=== PATIENT | male | born 1935 | race Caucasian/White ===

== ENCOUNTER 2017-06-24 08:41 | Inpatient (IN) | payer MEDICARE, BC ==
[2015-10-31 09:50] VITALS: Ht 162.6 cm; Wt 81.4 kg
[~2017-06-24] VITALS: Ht 162.6 cm; Wt 81.4 kg
[~2017-06-24 08:41] MED LIST: ACE500 PO; ASCO100T15 PO; ATOR10TA65 PO; ATR10 PO; BEN10 PO; BENA40TA2 PO; DOXA1TAB38 PO; GLUC-198 PO; INUL1TAB PO; L GA1CAP PO; LOR5/325 PO; MECL-111 PO; MECLAZINE; MULT-27 PO; NAPR-1043 PO; POLY17PO25 PO; TAMS0.4C25 PO; VIT-7 PO; VITAMINS PO
--- NOTE | 2017-06-24 08:56 | ER Report ---
History and Physical Time Seen By MD: 08:55 HPI/ROS CHIEF COMPLAINT: feels like bowels are blocked HISTORY OF PRESENT ILLNESS: This is an 82 year old male. He has a history of bowel obstruction and feels like the same thing is happening. Had diarrhea 2 days ago and no bowel movement since then. Had taken Pepto Bismol. Was passing gas yesterday, but no gas today. Abdomen is bloated. Severe nausea and had tried to vomit to help relieve this, but has not helped. Mild to moderate pain. REVIEW OF SYSTEMS: Constitutional: No fever or chills. Eyes: No vision changes. ENT: No sore throat. No congestion. Cardiovascular: No chest pain. Respiratory: No shortness of breath. Gastrointestinal: As above. Genitourinary: No dysuria. Musculoskeletal: No back pain. No extremity pain. Skin: No rashes. Neurological: No numbness. No headache. Allergies: Coded Allergies: Penicillins (Verified Allergy, Mild, 06/24/17) rofecoxib (Verified Allergy, Unknown, 06/24/17) Uncoded Allergies: MOLDS (Allergy, Mild, POS. ALLERGY TEST, 07/15/08) TREES (Allergy, Mild, ALLERGY TEST, 07/15/08) Home Meds Active Scripts Tamsulosin Hcl (FLOMAX) 0.4 Mg Cap.er.24h, 1 CAP PO QDAY, #90 CAP 1 Refill Prov:YANIRA ALVARES MD 04/01/17 Atorvastatin Calcium (ATORVASTATIN CALCIUM) 10 Mg Tablet, 1 TAB PO QHS, #90 TAB 1 Refill Prov:YANIRA ALVARES MD 02/22/17 Reported Medications Polyethylene Glycol 3350 (MIRALAX) 17 Gm Powd.pack, 17 GM PO QDAY, PKT 02/01/17 Benazepril Hcl (LOTENSIN) 40 Mg Tablet, 40 MG PO QDAY, TAB 02/01/17 Naproxen Sodium (ALEVE) 220 Mg Tablet, 220 MG PO QDAY, TAB use it only prn but try not too and certainly not once a day. he says he hardly uses it at all 10/30/15 Glucosa Bower 2KCL/Chondroitin Bower (GLUCOSAMINE & CHONDROITIN CAP) 1 Each Capsule, 1 EACH PO, CAPSULE 01/15/14 Past Medical/Surgical History Hypertension, hyperlipidemia, arthritis, plantar fasciitis. Surgeries include appendectomy, hernia repair 20 years ago, back surgery for herniated disc, left and right shoulder surgery. On last admission he had a laparoscopy with lysis of adhesions for small bowel obstruction. Hx Smoking: Yes Smoking Status: Former Smoker Hx Alcohol Use: Yes Constitutional Vital Sign - Last 24 Hours 06/24/17 06/24/17 06/24/17 06/24/17 08:41 08:47 08:50 09:00 Temp 98.5 Pulse ??? 91 Resp 22 B/P (MAP) 187/80 187/80 (115) 164/149 (154) Pulse Ox 93 O2 Delivery Room Air 06/24/17 06/24/17 06/24/17 06/24/17 09:11 09:14 09:17 09:19 Pulse 82 78 B/P (MAP) 160/72 (101) Pulse Ox 94 90 O2 Flow Rate 2.0 06/24/17 06/24/17 06/24/17 06/24/17 09:37 10:00 10:19 10:30 Pulse 85 B/P (MAP) 149/74 (99) 148/67 (94) 153/71 (98) Pulse Ox 95 06/24/17 06/24/17 06/24/17 06/24/17 10:49 11:00 11:05 11:30 Pulse 88 87 B/P (MAP) 146/71 (96) 157/73 (101) Pulse Ox 97 96 06/24/17 06/24/17 06/24/17 06/24/17 11:56 12:05 12:35 12:40 Pulse 91 88 87 B/P (MAP) 168/73 (104) Pulse Ox 97 95 95 06/24/17 06/24/17 06/24/17 06/24/17 13:10 13:43 14:32 14:37 Pulse ??? 93 B/P (MAP) 131/85 (100) 145/66 (92) Pulse Ox 95 06/24/17 06/24/17 15:00 15:07 Pulse 94 B/P (MAP) 150/67 (94) Pulse Ox 85 Physical Exam General Appearance: The patient is alert. No acute distress. Eyes: Pupils are equal, round. No pallor, injection or icterus. ENT: Mucous membranes are dry. Otherwise normal oral mucosa. Posterior oropharynx is normal. Respiratory: Lungs are clear to auscultation. Cardiovascular: Regular rate and rhythm. No murmurs, gallops or rubs. Normal capillary refill. Gastrointestinal: Abdomen is soft, moderate discomfort with palpation. Distended. Bowel sounds quite with sudden gurgling rushes. No rebound or guarding. No masses or organomegaly. Neurological: Alert and oriented x3. No focal neurologic deficits Skin: Warm and dry. No rashes. DIFFERENTIAL DIAGNOSIS: After history and physical exam, differential diagnosis was considered for distended abdomen with some pain and nausea concerning for bowel obstruction. Medical Decision Making Data Points Result Diagram: 06/24/17 0853 06/24/17 0853 Laboratory Hematology Test 06/24/17 08:48 06/24/17 08:53 Urine Color Yellow Urine Clarity Clear Urine pH 5.0 pH (4.8-9.5) Urine Specific Antler 1.016 Urine Protein Negative mg/dL (NEGATIVE) Urine Glucose (UA) Negative mg/dL (NEGATIVE) Urine Ketones Negative mg/dL (NEGATIVE) Urine Blood Negative (NEGATIVE) Urine Nitrite Negative (NEGATIVE) Urine Bilirubin Negative (NEGATIVE) Urine Urobilinogen Negative mg/dL (0.2-1.9) Urine Leukocyte Esterase Negative (NEGATIVE) Urine RBC None /HPF (0-2/HPF) Urine WBC None /HPF (0-5/HPF) Urine Squamous Epithelial Cells None /LPF (</=FEW) Urine Bacteria Negative /HPF (NONE-FEW) Urine Mucus None /HPF (NONE-FEW) Red Blood Count 5.05 M/uL (4.00-5.60) Mean Corpuscular Volume 94.4 fL (80.0-96.0) Mean Corpuscular Hemoglobin 32.7 pg (26.0-33.0) Mean Corpuscular Hemoglobin Concent 34.7 g/dL (32.0-36.0) Red Cell Distribution Width 13.3 % (11.5-14.5) Mean Platelet Volume 9.3 fL (7.2-11.1) Neutrophils (%) (Auto) 80.0 % (39.4-72.5) Lymphocytes (%) (Auto) 12.2 % (17.6-49.6) Monocytes (%) (Auto) 6.9 % (4.1-12.4) Eosinophils (%) (Auto) 0.4 % (0.4-6.7) Basophils (%) (Auto) 0.5 % (0.3-1.4) Nucleated RBC Relative Count (auto) 0.1 /100WBC Neutrophils # (Auto) 9.5 K/uL (2.0-7.4) Lymphocytes # (Auto) 1.4 K/uL (1.3-3.6) Monocytes # (Auto) 0.8 K/uL (0.3-1.0) Eosinophils # (Auto) 0.0 K/uL (0.0-0.5) Basophils # (Auto) 0.1 K/uL (0.0-0.1) Nucleated RBC Absolute Count (auto) 0.02 K/uL Sodium Level 139 mmol/L (137-145) Potassium Level 3.8 mmol/L (3.5-5.0) Chloride Level 103 mmol/L (98-107) Carbon Dioxide Level 23 mmol/L (22-30) Blood Urea Nitrogen 12 mg/dl (9-21) Creatinine 1.10 mg/dl (0.66-1.25) Glomerular Filtration Rate Calc > 60.0 Random Glucose 121 mg/dl (75-110) Calcium Level 9.3 mg/dl (8.4-10.2) Total Bilirubin 1.1 mg/dl (0.2-1.3) Aspartate Amino Transf (AST/SGOT) 25 U/L (0-35) Alanine Aminotransferase (ALT/SGPT) 31 U/L (0-56) Alkaline Phosphatase 62 U/L (0-126) Total Protein 8.6 gm/dl (6.3-8.2) Albumin 4.4 g/dl (3.5-5.0) Amylase Level 126 U/L (0-110) Lipase 139 U/L (23-300) Chemistry Test 06/24/17 08:48 06/24/17 08:53 Urine Color Yellow Urine Clarity Clear Urine pH 5.0 pH (4.8-9.5) Urine Specific Antler 1.016 Urine Protein Negative mg/dL (NEGATIVE) Urine Glucose (UA) Negative mg/dL (NEGATIVE) Urine Ketones Negative mg/dL (NEGATIVE) Urine Blood Negative (NEGATIVE) Urine Nitrite Negative (NEGATIVE) Urine Bilirubin Negative (NEGATIVE) Urine Urobilinogen Negative mg/dL (0.2-1.9) Urine Leukocyte Esterase Negative (NEGATIVE) Urine RBC None /HPF (0-2/HPF) Urine WBC None /HPF (0-5/HPF) Urine Squamous Epithelial Cells None /LPF (</=FEW) Urine Bacteria Negative /HPF (NONE-FEW) Urine Mucus None /HPF (NONE-FEW) White Blood Count 11.9 k/uL (4.5-11.0) Red Blood Count 5.05 M/uL (4.00-5.60) Hemoglobin 16.5 g/dL (14.0-18.0) Hematocrit 47.7 % (42.0-52.0) Mean Corpuscular Volume 94.4 fL (80.0-96.0) Mean Corpuscular Hemoglobin 32.7 pg (26.0-33.0) Mean Corpuscular Hemoglobin Concent 34.7 g/dL (32.0-36.0) Red Cell Distribution Width 13.3 % (11.5-14.5) Platelet Count 167 K/uL (150-450) Mean Platelet Volume 9.3 fL (7.2-11.1) Neutrophils (%) (Auto) 80.0 % (39.4-72.5) Lymphocytes (%) (Auto) 12.2 % (17.6-49.6) Monocytes (%) (Auto) 6.9 % (4.1-12.4) Eosinophils (%) (Auto) 0.4 % (0.4-6.7) Basophils (%) (Auto) 0.5 % (0.3-1.4) Nucleated RBC Relative Count (auto) 0.1 /100WBC Neutrophils # (Auto) 9.5 K/uL (2.0-7.4) Lymphocytes # (Auto) 1.4 K/uL (1.3-3.6) Monocytes # (Auto) 0.8 K/uL (0.3-1.0) Eosinophils # (Auto) 0.0 K/uL (0.0-0.5) Basophils # (Auto) 0.1 K/uL (0.0-0.1) Nucleated RBC Absolute Count (auto) 0.02 K/uL Glomerular Filtration Rate Calc > 60.0 Calcium Level 9.3 mg/dl (8.4-10.2) Total Bilirubin 1.1 mg/dl (0.2-1.3) Aspartate Amino Transf (AST/SGOT) 25 U/L (0-35) Alanine Aminotransferase (ALT/SGPT) 31 U/L (0-56) Alkaline Phosphatase 62 U/L (0-126) Total Protein 8.6 gm/dl (6.3-8.2) Albumin 4.4 g/dl (3.5-5.0) Amylase Level 126 U/L (0-110) Lipase 139 U/L (23-300) Urinalysis Test 06/24/17 08:48 Urine Color Yellow Urine Clarity Clear Urine pH 5.0 pH (4.8-9.5) Urine Specific Antler 1.016 Urine Protein Negative mg/dL (NEGATIVE) Urine Glucose (UA) Negative mg/dL (NEGATIVE) Urine Ketones Negative mg/dL (NEGATIVE) Urine Blood Negative (NEGATIVE) Urine Nitrite Negative (NEGATIVE) Urine Bilirubin Negative (NEGATIVE) Urine Urobilinogen Negative mg/dL (0.2-1.9) Urine Leukocyte Esterase Negative (NEGATIVE) Urine RBC None /HPF (0-2/HPF) Urine WBC None /HPF (0-5/HPF) Urine Squamous Epithelial Cells None /LPF (</=FEW) Urine Bacteria Negative /HPF (NONE-FEW) Urine Mucus None /HPF (NONE-FEW) EKG/Imaging Imaging Exam type: ACUTE ABDOMEN SERIES 3 VIEW History: ABD PAIN Comparison: November 02, 2015. Findings: Air-fluid levels are seen in multiple loops of mildly prominent small bowel throughout the abdomen. There is a paucity of colonic bowel gas. Findings are concerning for small bowel obstruction. On one of the upright views are suggestion of a small air-fluid level beneath right hemidiaphragm. Free intracranial air cannot be totally excluded. No gross evidence of organomegaly. There are moderate spondylotic changes lower lumbar spine. Orthopedic nails are incompletely imaged over the left hip. Given the chest reveals no evidence of acute pulmonary consolidation. The cardiac silhouette is normal in size. The trachea is in midline. There are postsurgical changes of the left shoulder IMPRESSION: 1. Findings worrisome for small bowel obstruction. On one of the upright views are suggestion of a small air-fluid level beneath right hemidiaphragm. Free intraperitoneal air cannot be ruled out. Report Dictated By: Luz Harper MD at 06/24/2017 9:[address] abdomen and pelvis with IV contrast Indication: Abdominal pain. Comparison: None available. . Technique: Axial CT images were obtained through the abdomen and pelvis during injection of nonionic iodinated intravenous contrast. Reformatted coronal and sagittal images were also obtained. One of the following dose optimization techniques was utilized in the performance of this exam: Automated exposure control; adjustment of the mA and/ or kV according to the patient's size; or use of an iterative reconstruction technique. Specific details can be referenced in the facility's radiology CT exam operational policy. Contrast: 75 ml of Isovue-370 IV contrast. Findings: Lower lung goins: right middle lobe does show a pleural-based 3.6 mm nodule. Lung bases otherwise clear with mild dependent atelectasis Liver: There are several subcentimeter hypodensities scattered throughout the liver with the largest hypodensity measures 1.7 cm. These would be consistent with cysts. No discrete solid liver lesion is identified. Biliary: Gallbladder appears unremarkable as well as the intra and extra hepatic biliary system. Pancreas: Normal appearance. Spleen: Normal appearance. Adrenal glands: Unremarkable. Kidneys / retroperitoneum: No evidence of nephrolithiasis or hydronephrosis. No solid renal lesions. Bowel / peritoneum / mesenteries: Scattered diffuse diverticula along the colon mainly in the descending and sigmoid region without pericolonic inflammation. Colon shows no focal abnormality. The appendix not visualized. There is dilated loops of small bowel seen proximal small bowel. There are transition is in the lower anterior abdomen with a small bowel does show focal area of wall thickening. Small bowel shows no other focal abnormality. The stomach is unremarkable. No free air, free fluid, fluid collections or areas of inflammation. Small left inguinal hernia containing fat. Lymph node assessment: No pathologic adenopathy identified. Pelvic structures: Prostate is enlarged and heterogeneous without a discrete lesion. This does cause significant compression the urinary bladder. Urinary bladder shows no other focal normality. The remaining pelvic structures visualized within normal limits. Vessels: Mild atherosclerotic calcifications seen throughout a nonaneurysmal abdominal aorta and branches. Musculoskeletal / Body wall: No acute or aggressive osseous abnormality. Degenerative changes spine. Previous internal fixation of a left proximal femoral fracture without sequelae. IMPRESSION: 1. Proximal small bowel bowel obstruction. The area of transition is the lower anterior abdomen where the small bowel shows a focal area of wall thickening. Unsure if this is due to a tumor or focal inflammation. 2. Diverticulosis without radiographic indication diverticulitis. 3. Prostate is enlarged and heterogeneous without discrete focal abnormality. This does cause significant impression to the urinary bladder. 4. The right middle lobe does show pleural-based 3.6 mm nodule. This is too small characterize and could be postinflammatory. Suggest follow-up per Fleischner guidelines described below. 5. Other chronic findings as above. I called report to COLETTE VASQUEZ at 06/24/2017 12:29 PM. FLEISCHNER SOCIETY FOLLOW-UP GUIDELINES FOR NEWLY DETECTED INCIDENTAL NODULES IN PERSONS 35 YEARS OF AGE OR OLDER. *THESE RECOMMENDATIONS DO NOT APPLY TO LUNG CANCER SCREENING, PATIENTS WITH IMMUNOSUPPRESSION , OR PATIENTS WITH KNOWN PRIMARY MALIGNANCY. SOLITARY SOLID NODULES If nodule size is less than 6 mm: Low risk patient - no follow up needed High risk patient - Optional CT at 12 months. If nodule size is 6-8 mm: Low risk patient - follow up CT at 6-12 months, then consider CT at 18-24 months if no change. High risk patient - follow up CT at 6-12 months, then CT at 18-24 months if no change. If nodule size is greater than 8 mm:Low risk patient - Consider CT at 3, 9 months, and 24 months; or PET/CT, or tissue sampling, or a combination thereof. High risk patient - Consider CT at 3, 9 months, and 24 months; or PET/CT, or tissue sampling, or a combination thereof. LOW RISK PATIENT: Minimal or absent history of tobacco use and of other known risk factors. HIGH RISK PATIENT: Tobacco use, family history of lung cancer, upper pulmonary lobe location of nodule, presence of emphysema, pulmonary fibrosis, older age. Jil H, Nadine DP, Mercedez JM, et al. Guidelines for Management of Incidental Pulmonary Nodules Detected on CT Images: From the Fleischner Society 2017. Radiology. Report Dictated By: Brandin Scott at 06/24/2017 12:14 PM ED Course/Re-evaluation Clinical Indication for ER IV: IV Access ED Course Imaging was done starting with an abdominal 3 view followed by a CT scan of the abdomen and pelvis with contrast that showed a small bowel obstruction. The patient was significantly better after Zofran 4mg IV. After finding the obstruction, I discussed with the patient the findings and recommended starting an NG tube and we would contact the surgeon. He did not want to have the NG tube done prior to seeing the surgeon stating that he had one in the past and did not want one now if he did not have to. discussed the case with Dr. Patel , who is currently in surgery, and he requested that we start an NG tube and he would see he patient after he gets out of surgery. I discussed this with the patient and he reluctantly agreed to have the NG tube placed. The nurse attempted the NG tube twice, but the patient was unable to tolerate this and asked the nurse to stop. Decision to Disposition Date: Jun 24, 2017 Decision to Disposition Time: 15:00 Depart Departure Latest Vital Signs Vital Signs Date Time Temp Pulse Resp B/P (MAP) Pulse Ox O2 Delivery O2 Flow Rate FiO2 06/24/17 15:07 94 85 06/24/17 15:00 150/67 (94) 06/24/17 09:17 2.0 06/24/17 08:47 98.5 22 Room Air Impression: Primary Impression: Small bowel obstruction Condition: Condition Unchanged Disposition: Admitted from ER COLETTE VASQUEZ MD Jun 24, 2017 08:56
[2017-06-24] MEDS ORDERED: ONDANSETRON 4 MG/2 ML VIAL IVP ONE (09:05)
[2017-06-24] MEDS ORDERED: MORPHINE 4 MG/ML SYR IVP ONE (09:05)
[2017-06-24] MEDS ORDERED: PANTOPRAZOLE SOD 40 MG IV VIAL IVP ONE (09:05)
[2017-06-24 09:11] LABS: PLATELET COUNT, AUTOMATED 167 K/uL (150-450)
--- NOTE | 2017-06-24 09:53 | RADIOLOGY IMAGING REPORT ---
FACILITY: [facility] [place] PATIENT NAME: Rakesh Iniguez : 1935 MR: [id number] V: [id number] EXAM DATE: ORDERING PHYSICIAN: COLETTE VASQUEZ TECHNOLOGIST: Location: [facility] Patient: Rakesh Iniguez : 1935 Visit/Account:[id number] Date of Sevice: 06/24/2017 Exam type: ACUTE ABDOMEN SERIES 3 VIEW History: ABD PAIN Comparison: November 02, 2015. Findings: Air-fluid levels are seen in multiple loops of mildly prominent small bowel throughout the abdomen. There is a paucity of colonic bowel gas. Findings are concerning for small bowel obstruction. On on e of the upright views are suggestion of a small air-fluid level beneath right hemidiaphragm. Free i ntracranial air cannot be totally excluded. No gross evidence of organomegaly. There are moderate s pondylotic changes lower lumbar spine. Orthopedic nails are incompletely imaged over the left hip. Given the chest reveals no evidence of acute pulmonary consolidation. The cardiac silhouette is norm al in size. The trachea is in midline. There are postsurgical changes of the left shoulder IMPRESSION: 1. Findings worrisome for small bowel obstruction. On one of the upright views are suggestion of a small air-fluid level beneath right hemidiaphragm. F ree intraperitoneal air cannot be ruled out. Report Dictated By: Luz Harper MD at 06/24/2017 9:46 AM Report E-Signed By: Luz Harper MD at 06/24/2017 9:49 AM WSN:[id number]
[2017-06-24] MEDS ORDERED: IOPAMIDOL 76% 75 ML INFUS BTL 75 ML ONE (11:32)
[2017-06-24] MEDS ORDERED: NS 0.9% 50 ML VIAL 50 ML ONE (11:33)
--- NOTE | 2017-06-24 12:34 | RADIOLOGY IMAGING REPORT ---
FACILITY: [facility] PATIENT NAME: Rakesh Iniguez : 1935 MR: [id number] V: [id number] EXAM DATE: ORDERING PHYSICIAN: COLETTE VASQUEZ TECHNOLOGIST: Location: [facility] [place] Patient: Rakesh Iniguez : 1935 Visit/Account:[id number] Date of Sevice: 06/24/2017 CT abdomen and pelvis with IV contrast Indication: Abdominal pain. Comparison: None available. . Technique: Axial CT images were obtained through the abdomen and pelvis during injection of nonioni c iodinated intravenous contrast. Reformatted coronal and sagittal images were also obtained. One of the following dose optimization techniques was utilized in the performance of this exam: Autom ated exposure control; adjustment of the mA and/or kV according to the patient's size; or use of an i terative reconstruction technique. Specific details can be referenced in the facility's radiology C T exam operational policy. Contrast: 75 ml of Isovue-370 IV contrast. Findings: Lower lung goins: right middle lobe does show a pleural-based 3.6 mm nodule. Lung bases otherwise cl ear with mild dependent atelectasis Liver: There are several subcentimeter hypodensities scattered throughout the liver with the largest hypodensity measures 1.7 cm. These would be consistent with cysts. No discrete solid liver lesion is identified. Biliary: Gallbladder appears unremarkable as well as the intra and extra hepatic biliary system. Pancreas: Normal appearance. Spleen: Normal appearance. Adrenal glands: Unremarkable. Kidneys / retroperitoneum: No evidence of nephrolithiasis or hydronephrosis. No solid renal lesions. Bowel / peritoneum / mesenteries: Scattered diffuse diverticula along the colon mainly in the descend ing and sigmoid region without pericolonic inflammation. Colon shows no focal abnormality. The append ix not visualized. There is dilated loops of small bowel seen proximal small bowel. There are transit ion is in the lower anterior abdomen with a small bowel does show focal area of wall thickening. Smal l bowel shows no other focal abnormality. The stomach is unremarkable. No free air, free fluid, fluid collections or areas of inflammation. Small left inguinal hernia conta ining fat. Lymph node assessment: No pathologic adenopathy identified. Pelvic structures: Prostate is enlarged and heterogeneous without a discrete lesion. This does cau se significant compression the urinary bladder. Urinary bladder shows no other focal normality. The r emaining pelvic structures visualized within normal limits. Vessels: Mild atherosclerotic calcifications seen throughout a nonaneurysmal abdominal aorta and bran ches. Musculoskeletal / Body wall: No acute or aggressive osseous abnormality. Degenerative changes spine. Previous internal fixation of a left proximal femoral fracture without sequelae. IMPRESSION: 1. Proximal small bowel bowel obstruction. The area of transition is the lower anterior abdomen where the small bowel shows a focal area of wall thickening. Unsure if this is due to a tumor or focal inf lammation. 2. Diverticulosis without radiographic indication diverticulitis. 3. Prostate is enlarged and heterogeneous without discrete focal abnormality. This does cause signifi cant impression to the urinary bladder. 4. The right middle lobe does show pleural-based 3.6 mm nodule. This is too small characterize and co uld be postinflammatory. Suggest follow-up per Fleischner guidelines described below. 5. Other chronic findings as above. I called report to COLETTE VASQUEZ at 06/24/2017 12:29 PM. FLEISCHNER SOCIETY FOLLOW-UP GUIDELINES FOR NEWLY DETECTED INCIDENTAL NODULES IN PERSONS 35 YEARS OF AGE OR OLDER. *THESE RECOMMENDATIONS DO NOT APPLY TO LUNG CANCER SCREENING, PATIENTS WITH IMMUNOSUPPRESSION , OR PA TIENTS WITH KNOWN PRIMARY MALIGNANCY. SOLITARY SOLID NODULES If nodule size is less than 6 mm: Low risk patient - no follow up needed High risk patient - Optional CT at 12 months. If nodule size is 6-8 mm: Low risk patient - follow up CT at 6-12 months, then consider CT at 18-24 m [facility] if no change. High risk patient - follow up CT at 6-12 months, then CT at 18-24 months if no change. If nodule size is greater than 8 mm:Low risk patient - Consider CT at 3, 9 months, and 24 months; or PET/CT, or tissue sampling, or a combination thereof. High risk patient - Consider CT at 3, 9 months, and 24 months; or PET/CT, or tissue sampling, or a co mbination thereof. LOW RISK PATIENT: Minimal or absent history of tobacco use and of other known risk factors. HIGH RISK PATIENT: Tobacco use, family history of lung cancer, upper pulmonary lobe location of nodul e, presence of emphysema, pulmonary fibrosis, older age. Jil H, Nadine PALMA, Mercedez RAMIREZ, et al. Guidelines for Management of Incidental Pulmonary Nodules Dete cted on CT Images: From the Fleischner Society 2017. Radiology. Report Dictated By: Brandin Scott at 06/24/2017 12:14 PM Report E-Signed By: Brandin Scott at 06/24/2017 12:30 PM WSN:[id number]
[2017-06-24] MEDS ORDERED: HYDROmorphone PCA 6 MG/30 ML IV PRN (15:10)
[2017-06-24] MEDS ORDERED: ONDANSETRON 4 MG/2 ML VIAL IVP PRN (15:10)
[2017-06-24] MEDS ORDERED: FLUSH 10 ML SYR IVP PRN (15:10)
[2017-06-24] MEDS ORDERED: NALOXONE HCL 0.4 MG/ML VIAL IVP PRN (15:10)
[2017-06-24 15:43] VITALS: BP 159/70
[2017-06-24] MEDS: NS(*) 0.9% 1000 ML BAG 1,000 ML IV PRN ×2 (16:47→23:54)
[2017-06-24 19:04] VITALS: BP 128/56
[2017-06-24 23:56] VITALS: BP 117/60
[2017-06-25 03:18] VITALS: BP 132/67
--- NOTE | 2017-06-25 04:18 | ULLRICH H&P ---
DATE OF ADMISSION: June 24, 2017 CHIEF COMPLAINT Abdominal pain. HISTORY OF PRESENT ILLNESS This is an 82-year-old gentleman who brings himself into the emergency room with a 2-day history of abdominal distention and pain. He reports that he had similar symptoms when he had a bowel obstruction 7 months ago. He has not passed flatus for 2 days, although he has been passing liquid stool, and he notes this was similar presentation when he came in to the hospital 7 months ago with the same problem. He has had a history of open appendectomy when he was 8 years old. It was not perforated by his report. He has had no other abdominal surgeries other than the appendectomy, but during the last hospitalization, he ultimately did require laparoscopic exploration with lysis of adhesions. He reports that he has done well since then. He has been admitted to the Med/Surg [facility], and reports that since coming up here, he has started to pass flatus, and he continues to pass watery stools. His pain has resolved. CT scan and abdominal x-ray performed in the emergency room reveal a small bowel obstruction with distended and dilated loops of small intestine, but on CT there is quite a bit of liquid in his colon. PAST MEDICAL HISTORY 1. Hypertension. 2. Hyperlipidemia. 3. Benign prostatic hypertrophy. PAST SURGICAL HISTORY 1. Open appendectomy. 2. Laparoscopy with lysis of adhesions. 3. Foot surgery after a foot injury. MEDICATIONS 1. Atorvastatin. 2. Lotensin. 3. Flomax. 4. MiraLAX. 5. Chondroitin/glucosamine. ALLERGIES 1. PENICILLIN. 2. ROFECOXIB. SOCIAL HISTORY The patient does not smoke, and drinks only occasionally. FAMILY HISTORY No relevant family history. PHYSICAL EXAMINATION VITAL SIGNS: Patient is afebrile, and his vitals are within normal limits. GENERAL: The patient appears to be healthy and alert and in no acute distress. He appears comfortable. HEENT: PERRL, EOMI. Oropharynx is clear. LUNGS: Clear to auscultation bilaterally. HEART: Regular rate and rhythm. ABDOMEN: Soft and nontender and non-tympanic. EXTREMITIES: Warm and perfused without edema. LABORATORY DATA CBC and complete metabolic panel are unremarkable. IMAGING CT scan: Consistent with a small bowel obstruction with transition point in the lower right abdomen. Acute abdominal series also is consistent with small bowel obstruction. ASSESSMENT This is an 82-year-old gentleman with a history of two abdominal surgeries, including one for a bowel obstruction with lysis of adhesions, who presents with symptoms that are similar to his previous small bowel obstruction. Imaging is certainly consistent with a bowel obstruction. He has already clinically improved since coming to the [facility], and his pain has resolved, and he is passing flatus. Interestingly, he never really stopped passing stool, but it has been watery, which is atypical for him. PLAN He is admitted to the surgical service on regular medical surgical [facility]. We will start with bowel rest and IV fluids. I have recommended an NG tube for decompression, but has refused this. We will give him 48-72 hours to improve, and if there is no improvement in that time frame, then we will abandon conservative management and proceed with surgical exploration. I have explained to him the nature of bowel obstructions and that most are caused by adhesions in patients who have had previous abdominal surgeries, but that every time we operate, there is the risk of developing more adhesions, and so we try not to operate, as 70% of these will improve without surgery if they are due to adhesions. He seems to understand this discussion, and he seems happy that we are not proceeding immediately to surgery, and he seems to understand this plan and is agreeable with proceeding with it. We will get a KUB in the morning, and we will follow him clinically, and based on his symptoms, which include abdominal pain, nausea, appetite, flatus and bowel movements as well as his x- rays. SIXTO
[2017-06-25 06:10] LABS: PLATELET COUNT, AUTOMATED 124 K/uL (150-450)
--- NOTE | 2017-06-25 07:11 | RADIOLOGY IMAGING REPORT ---
FACILITY: [facility] PATIENT NAME: Rakesh Iniguez : 1935 MR: [id number] V: [id number] EXAM DATE: ORDERING PHYSICIAN: BEN BROWN TECHNOLOGIST: Location: [facility] [place] Patient: Rakesh Iniguez : 1935 Visit/Account:[id number] Date of Sevice: 06/25/2017 KUB SINGLE VIEW ABDOMEN COMPARISONS: Views of the abdomen dated June 24, 2017 ADDITIONAL PERTINENT HISTORY: Small bowel obstruction FINDINGS: Lung bases: Negative. Supine evidence of free air: None. Bowel gas pattern: Improved appearance of dilated loops of small bowel and air-fluid levels when comp ared to previous exam. Small amount of air noted within the colon. Surrounding soft tissues and solid organs: Contrast within the urinary bladder likely related to prev ious CT scan. Osseous structures: Previous dynamic hip screw placement through the left femoral neck. IMPRESSION: 1. Interval improvement in an underlying small bowel obstruction. Report Dictated By: Jose De Jesus Briscoe MD at 06/25/2017 7:06 AM Report E-Signed By: Jose De Jesus Briscoe MD at 06/25/2017 7:08 AM [id number]
[2017-06-25 07:39] VITALS: BP 126/60
--- NOTE | 2017-06-25 08:27 | Medical Nutrition Therapy ---
Nutrition Anthropometrics Height (Inches): 64.00 Height (Calculated Centimeters: 162.671833 Weight (Pounds): 179 Weight (Calculated Kilograms): 81.391 BMI Calculated: 32.95 Jhon Nutrition Score: Adequate Jhon Nutrition Risk Score: 22 Dietary Referral Nutrition Risk Factors: Nutrition Risk Comment: Physical Findings Physical Appearance: Obese BMI 30-39 Skin Appearance Skin Appearance: Edema Edema Location Modifier: Edema Location: Type of Edema: Degree of Edema: Gastrointestinal Symptoms GI Symtoms: Appetite Changes, Bloating, Change in Bowel Pattern Tube Present: Bowel Sounds: Recent Bowel Pattern: Constipated, No Bowel Movement Stool Characteristics: Liquid Nutritional Diagnosis Nutritional Risk Acuity 1: GI Obstruction Nutritional Risk Acuity 3: Nausea Past Medical History: HTN, Hypercholesterolemia, Occasional Diarrhea Nutritional Acuity: 2-Moderate Nutrition Diagnosis: Altered GI Function Nutrition Etiology: Physiological Causes Nutrition Problem/Etiology/Sym: AEB dx SBO Energy Requirement: 1850 (M- SJ) Protein Requirement: 81 (1gm/kg) Fluid Requirement: 2000 (24ml/kg) Diet Type: NPO (Nothing by Mouth) Nutrition Intervention: Incr diet as tolerated Nutrition Monitoring & Eval Nutrition Goals: Eat 75-100% Meal RD Patient Assessment Time: [address] Assessment Type: RD Assessment Patient Nutrition Acuity: 1-High Follow Up Date: Jun 27, 2017 Nutritional Comment: 06/25 Pt admitted for SBO. Alb 4.4. Pt reporting nausea. Will cont to monitor. ROSSY SALMERON Jun 25, 2017 08:27
--- NOTE | 2017-06-25 08:32 | General Surgery Progress Note ---
Subjective Progress Notes Subjective Feeling better this morning. Had some nausea earlier but now better. Passing liquid stools and now passing flatus. Mild LLQ abdominal pain. Physical Exam Vital Signs Date Time Temp Pulse Resp B/P (MAP) Pulse Ox O2 Delivery O2 Flow Rate FiO2 06/25/17 07:39 97.8 67 14 126/60 (82) 92 Room Air 06/25/17 03:18 1.0 General Appearance: Alert, Awake, No Acute Distress, Afebrile GI: Other (Soft, mild TTP in LLQ, no peritoneal signs.) Extremities: Warm, Perfused Result Diagram: 06/25/1739 06/25/1739 Assessment and Plan Problems: (1) Small bowel obstruction Status: Acute Assessment & Plan: 06/25/17: Doing better but still with mild pain and nausea. Will send stool studies given watery stools. Will continue bowel rest until he's feeling better. Continue IV fluids, PPI, Lovenox. Condition Stable. Time Spent: < 30 min Exam Sepsis Risk: No Definite Risk BEN BROWN MD Jun 25, 2017 08:32
[2017-06-25] MEDS: ENOXAPARIN 40 MG/0.4ML SYR SC SCH (08:56)
[2017-06-25] MEDS ORDERED: PANTOPRAZOLE SOD 40 MG IV VIAL IVP SCH (09:00)
[2017-06-25] MEDS: NS(*) 0.9% 1000 ML BAG 1,000 ML IV PRN (10:09)
[2017-06-25 16:48] VITALS: BP 137/57
[2017-06-25] MEDS ORDERED: NS(*) 0.9% 1000 ML BAG 1,000 ML IV PRN (17:09)
[2017-06-25 18:50] VITALS: BP 131/55
[2017-06-25 23:46] VITALS: BP 134/72
[2017-06-26 03:52] VITALS: BP 116/59
[2017-06-26 07:28] VITALS: BP 133/87
[2017-06-26] MEDS: ENOXAPARIN 40 MG/0.4ML SYR SC SCH (08:28)
[2017-06-26] MEDS ORDERED: PANTOPRAZOLE SOD 40 MG TABEC PO SCH (09:00)
--- NOTE | 2017-06-26 09:45 | General Surgery Progress Note ---
Subjective Progress Notes Subjective Feels good this morning. No nausea, tolerating clears, passing flatus, small solid stool. Physical Exam Vital Signs Date Time Temp Pulse Resp B/P (MAP) Pulse Ox O2 Delivery O2 Flow Rate FiO2 06/26/17 08:15 91 06/26/17 08:15 Room Air 06/26/17 07:28 97.6 55 16 133/87 (102) 06/25/17 03:18 1.0 Intake and Output 06/27/17 07:00 # Bowel Movements 1 General Appearance: Alert, Awake, No Acute Distress Neuro: No Gross deficits Eyes: PERRLA Cardiovascular: Normal Rhythm & Peripheral Pulses Respiratory: No Respiratory Distress GI: Soft and Non-Tender Result Diagram: 06/25/17 0539 06/25/17 0539 Assessment and Plan Problems: (1) Small bowel obstruction Status: Acute Assessment & Plan: 06/25/17: Doing better but still with mild pain and nausea. Will send stool studies given watery stools. Will continue bowel rest until he's feeling better. Continue IV fluids, PPI, Lovenox. 06/26/17: Ready for discharge. Obstruction has resolved. No further liquid stools so studies not sent and will cancel. Lack of liquid stools rules out most infectious etiologies. Time Spent: < 30 min Exam Sepsis Risk: No Definite Risk SKY ADAMS MD Jun 26, 2017 09:45
== END 2017-06-26 10:40 | disposition home or self-care (01) | DRG 390 ==
LOC: ER 08:49 → MED 15:20
PROVIDERS: ADMIT Surgery; ATTEND Surgery
DX: K56.600 Partial intestinal obstruction, unspecified as to cause (principal); I10 Essential (primary) hypertension; E78.5 Hyperlipidemia, unspecified; N40.0 Benign prostatic hyperplasia without lower urinary tract symptoms; Z88.0 Allergy status to penicillin; Z88.8 Allergy status to other drugs, medicaments and biological substances; Z87.891 Personal history of nicotine dependence
CPT/HCPCS: 36415; 74000; 74022; 74177; 81001; 82040; 82150; 82247; 82310; 82374; 82435; 82565; 82947; 83690; 84075; 84132; 84155; 84295; 84450; 84460; 84520; 85025; 96374; 96375; 99284; C9113; J1650; J2270; J2405; J7030; J7050; Q9967

== ENCOUNTER 2017-12-04 08:54 | Inpatient (IN) | payer MEDICARE, BC ==
[2017-12-04] VITALS (10 sets, daily range): BP systolic 120–157; BP diastolic 55–65; Ht 162.6 cm; Wt 76.2 kg
[~2017-12-04] VITALS: Ht 162.6 cm; Wt 76.2 kg
[~2017-12-04 08:54] MED LIST changes: +BENA20TA8 PO; +DIPH0.5D12 IM
--- NOTE | 2017-12-04 09:01 | ER Report ---
History and Physical Time Seen By MD: 09:01 HPI/ROS CHIEF COMPLAINT: Abdominal discomfort, nausea HISTORY OF PRESENT ILLNESS: Patient is a 82-year-old male here with complaints of abdominal discomfort, nausea without vomiting. Patient reports having prior bowel obstructions. He is afebrile at time of evaluation, hemodynamically stable. Patient reports having his last solid bowel movement 2 days ago and is currently not passing flatus. Patient denies headache, blurred vision, chest pain, shortness of breath, blood in the stools or urine. REVIEW OF SYSTEMS: Constitutional: No fever, no chills. Eyes: No discharge. ENT: No sore throat. Cardiovascular: No chest pain, no palpitations. Respiratory: No cough, no shortness of breath. Gastrointestinal: + abdominal pain, no vomiting, + nausea. Genitourinary: No hematuria. Musculoskeletal: No back pain. Skin: No rashes. Neurological: No headache. Allergies: Coded Allergies: Penicillins (Verified Allergy, Mild, 06/24/17) rofecoxib (Verified Allergy, Unknown, 06/24/17) Uncoded Allergies: MOLDS (Allergy, Mild, POS. ALLERGY TEST, 07/15/08) TREES (Allergy, Mild, ALLERGY TEST, 07/15/08) Home Meds Active Scripts Atorvastatin Calcium (ATORVASTATIN CALCIUM) 10 Mg Tablet, 1 TAB PO QHS, #90 TAB 4 Refills Prov:ANISA SHAH MD 11/09/17 Tamsulosin Hcl (FLOMAX) 0.4 Mg Cap.er.24h, 2 CAP PO QDAY, #180 CAP 4 Refills Prov:ANISA SHAH MD 11/09/17 Benazepril Hcl (BENAZEPRIL HCL) 20 Mg Tab, 20 MG PO QDAY, #90 TAB 4 Refills Prov:ANISA SHAH MD 11/09/17 Reported Medications Polyethylene Glycol 3350 (MIRALAX) 17 Gm Powd.pack, 17 GM PO QDAY Y for CONSTIPATION, PKT 11/09/17 Naproxen Sodium (ALEVE) 220 Mg Tablet, 220 MG PO QDAY, TAB use it only prn but try not too and certainly not once a day. he says he hardly uses it at all 10/30/15 Glucosa Bower 2KCL/Chondroitin Bower (GLUCOSAMINE & CHONDROITIN CAP) 1 Each Capsule, 1 EACH PO, CAPSULE 01/15/14 Hx Smoking: Yes Smoking Status: Former Smoker Hx Substance Use Disorder: No Hx Alcohol Use: No Constitutional Vital Sign - Last 24 Hours 12/04/17 12/04/17 12/04/17 12/04/17 08:54 08:59 08:59 09:09 Temp 97.6 Pulse ??? 90 ??? Resp 18 B/P (MAP) 173/92 (119) 173/92 Pulse Ox 90 95 O2 Delivery Room Air 12/04/17 12/04/17 12/04/17 12/04/17 09:24 09:30 09:39 09:54 Pulse 85 82 ??? B/P (MAP) 138/49 (78) Pulse Ox 93 90 12/04/17 12/04/17 10:00 10:09 Pulse 85 B/P (MAP) 153/70 (97) Pulse Ox 95 Physical Exam General Appearance: The patient is alert, has no immediate need for airway protection and no signs of toxicity. Eyes: Pupils equal and round no pallor or injection. ENT, Mouth: Mucous membranes are moist. Respiratory: There are no retractions, lungs are clear to auscultation. Cardiovascular: Regular rate and rhythm. Gastrointestinal: + TTP diffuse abdomen with mild distension Neurological: No focal deficits Skin: Warm and dry, no rashes. Musculoskeletal: Neck is supple non tender. Extremities are nontender, nonswollen and have full range of motion. DIFFERENTIAL DIAGNOSIS: After history and physical exam differential diagnosis was considered for abdominal pain including but not limited to cholecystitis, gastritis and urinary tract infection. Bowel obstruction Medical Decision Making Data Points Result Diagram: 12/04/17 0911 12/04/17 0911 Laboratory Hematology Test 12/04/17 09:11 12/04/17 09:26 Red Blood Count 5.22 M/uL (4.00-5.60) Mean Corpuscular Volume 94.2 fL (80.0-96.0) Mean Corpuscular Hemoglobin 33.2 pg (26.0-33.0) Mean Corpuscular Hemoglobin Concent 35.2 g/dL (32.0-36.0) Red Cell Distribution Width 12.9 % (11.5-14.5) Mean Platelet Volume 9.4 fL (7.2-11.1) Neutrophils (%) (Auto) 85.5 % (39.4-72.5) Lymphocytes (%) (Auto) 6.2 % (17.6-49.6) Monocytes (%) (Auto) 7.8 % (4.1-12.4) Eosinophils (%) (Auto) 0.1 % (0.4-6.7) Basophils (%) (Auto) 0.4 % (0.3-1.4) Nucleated RBC Relative Count (auto) 0.0 /100WBC Neutrophils # (Auto) 12.2 K/uL (2.0-7.4) Lymphocytes # (Auto) 0.9 K/uL (1.3-3.6) Monocytes # (Auto) 1.1 K/uL (0.3-1.0) Eosinophils # (Auto) 0.0 K/uL (0.0-0.5) Basophils # (Auto) 0.1 K/uL (0.0-0.1) Nucleated RBC Absolute Count (auto) 0.00 K/uL Prothrombin Time 13.0 seconds (12.0-14.4) Prothromb Time International Ratio 0.99 Activated Partial Thromboplast Time 27 seconds (23-35) Sodium Level 140 mmol/L (137-145) Potassium Level 4.3 mmol/L (3.5-5.0) Chloride Level 101 mmol/L (98-107) Carbon Dioxide Level 23 mmol/L (22-30) Blood Urea Nitrogen 14 mg/dl (9-21) Creatinine 1.20 mg/dl (0.66-1.25) Glomerular Filtration Rate Calc 57.8 Random Glucose 130 mg/dl (75-110) Lactate 1.6 mmol/L (0.7-2.1) Calcium Level 9.8 mg/dl (8.4-10.2) Total Bilirubin 1.5 mg/dl (0.2-1.3) Aspartate Amino Transf (AST/SGOT) 26 U/L (0-35) Alanine Aminotransferase (ALT/SGPT) 24 U/L (0-56) Alkaline Phosphatase 61 U/L (0-126) Total Protein 8.4 gm/dl (6.3-8.2) Albumin 4.4 g/dl (3.5-5.0) Lipase 110 U/L (23-300) Urine Color Yellow Urine Clarity Clear Urine pH 5.0 pH (4.8-9.5) Urine Specific [place] 1.014 Urine Protein Negative mg/dL (NEGATIVE) Urine Glucose (UA) Negative mg/dL (NEGATIVE) Urine Ketones Trace mg/dL (NEGATIVE) Urine Blood Negative (NEGATIVE) Urine Nitrite Negative (NEGATIVE) Urine Bilirubin Negative (NEGATIVE) Urine Urobilinogen Negative mg/dL (0.2-1.9) Urine Leukocyte Esterase Negative (NEGATIVE) Urine RBC None /HPF (0-2/HPF) Urine WBC 2 /HPF (0-5/HPF) Urine Squamous Epithelial Cells Few /LPF (</=FEW) Urine Bacteria Negative /HPF (NONE-FEW) Urine Hyaline Casts Few /LPF (NONE-FEW) Urine Mucus Few /HPF (NONE-FEW) Chemistry Test 12/04/17 09:11 12/04/17 09:26 White Blood Count 14.3 k/uL (4.5-11.0) Red Blood Count 5.22 M/uL (4.00-5.60) Hemoglobin 17.3 g/dL (14.0-18.0) Hematocrit 49.2 % (42.0-52.0) Mean Corpuscular Volume 94.2 fL (80.0-96.0) Mean Corpuscular Hemoglobin 33.2 pg (26.0-33.0) Mean Corpuscular Hemoglobin Concent 35.2 g/dL (32.0-36.0) Red Cell Distribution Width 12.9 % (11.5-14.5) Platelet Count 167 K/uL (150-450) Mean Platelet Volume 9.4 fL (7.2-11.1) Neutrophils (%) (Auto) 85.5 % (39.4-72.5) Lymphocytes (%) (Auto) 6.2 % (17.6-49.6) Monocytes (%) (Auto) 7.8 % (4.1-12.4) Eosinophils (%) (Auto) 0.1 % (0.4-6.7) Basophils (%) (Auto) 0.4 % (0.3-1.4) Nucleated RBC Relative Count (auto) 0.0 /100WBC Neutrophils # (Auto) 12.2 K/uL (2.0-7.4) Lymphocytes # (Auto) 0.9 K/uL (1.3-3.6) Monocytes # (Auto) 1.1 K/uL (0.3-1.0) Eosinophils # (Auto) 0.0 K/uL (0.0-0.5) Basophils # (Auto) 0.1 K/uL (0.0-0.1) Nucleated RBC Absolute Count (auto) 0.00 K/uL Prothrombin Time 13.0 seconds (12.0-14.4) Prothromb Time International Ratio 0.99 Activated Partial Thromboplast Time 27 seconds (23-35) Glomerular Filtration Rate Calc 57.8 Lactate 1.6 mmol/L (0.7-2.1) Calcium Level 9.8 mg/dl (8.4-10.2) Total Bilirubin 1.5 mg/dl (0.2-1.3) Aspartate Amino Transf (AST/SGOT) 26 U/L (0-35) Alanine Aminotransferase (ALT/SGPT) 24 U/L (0-56) Alkaline Phosphatase 61 U/L (0-126) Total Protein 8.4 gm/dl (6.3-8.2) Albumin 4.4 g/dl (3.5-5.0) Lipase 110 U/L (23-300) Urine Color Yellow Urine Clarity Clear Urine pH 5.0 pH (4.8-9.5) Urine Specific [place] 1.014 Urine Protein Negative mg/dL (NEGATIVE) Urine Glucose (UA) Negative mg/dL (NEGATIVE) Urine Ketones Trace mg/dL (NEGATIVE) Urine Blood Negative (NEGATIVE) Urine Nitrite Negative (NEGATIVE) Urine Bilirubin Negative (NEGATIVE) Urine Urobilinogen Negative mg/dL (0.2-1.9) Urine Leukocyte Esterase Negative (NEGATIVE) Urine RBC None /HPF (0-2/HPF) Urine WBC 2 /HPF (0-5/HPF) Urine Squamous Epithelial Cells Few /LPF (</=FEW) Urine Bacteria Negative /HPF (NONE-FEW) Urine Hyaline Casts Few /LPF (NONE-FEW) Urine Mucus Few /HPF (NONE-FEW) Coagulation Test 12/04/17 09:11 Prothrombin Time 13.0 seconds Prothromb Time International Ratio 0.99 Activated Partial Thromboplast Time 27 seconds Urinalysis Test 12/04/17 09:26 Urine Color Yellow Urine Clarity Clear Urine pH 5.0 pH (4.8-9.5) Urine Specific [place] 1.014 Urine Protein Negative mg/dL (NEGATIVE) Urine Glucose (UA) Negative mg/dL (NEGATIVE) Urine Ketones Trace mg/dL (NEGATIVE) Urine Blood Negative (NEGATIVE) Urine Nitrite Negative (NEGATIVE) Urine Bilirubin Negative (NEGATIVE) Urine Urobilinogen Negative mg/dL (0.2-1.9) Urine Leukocyte Esterase Negative (NEGATIVE) Urine RBC None /HPF (0-2/HPF) Urine WBC 2 /HPF (0-5/HPF) Urine Squamous Epithelial Cells Few /LPF (</=FEW) Urine Bacteria Negative /HPF (NONE-FEW) Urine Hyaline Casts Few /LPF (NONE-FEW) Urine Mucus Few /HPF (NONE-FEW) EKG/Imaging Imaging Computed tomograpy abdomen and pelvis with IV contrast Indication: Abdominal pain. Comparison: 06/24/2017. Technique: Transaxial computed tomography images were obtained through the abdomen and pelvis following the injection of nonionic iodinated intravenous contrast. Reformatted coronal and sagittal images were also obtained. One of the following dose optimization techniques was utilized in the performance of this exam: Automated exposure control; adjustment of the mA and/ or kV according to the patient's size; or use of an iterative reconstruction technique. Specific details can be referenced in the facility's radiology CT exam operational policy. Contrast: 75 ml of Isovue-370 IV contrast. Findings: Lower lung goins: Dependent atelectasis is present within both lung bases. There is a tiny hiatal hernia. Liver: There are several small low-attenuation lesions present within the liver. These are unchanged when compared to the prior study. Benign etiologies would be favored. No intrahepatic biliary dilatation. Biliary: Gallbladder appears unremarkable as well as the intra and extra hepatic biliary system. Pancreas: Normal appearance. Spleen: Normal appearance. Adrenal glands: Mild thickening of the adrenal glands without focal nodule. No interval change. Kidneys / retroperitoneum: No stones or hydronephrosis. Focal areas of renal cortical scarring are seen bilaterally. There are suspected left parapelvic cysts. Bowel / peritoneum / mesenteries: There are numerous sigmoid and descending colon diverticula identified. No wall thickening or pericolonic inflammation is seen. There is no evidence for acute appendicitis. There are multiple mildly to moderately dilated small bowel loops identified. There is a clear transition point identified within the anterior mid abdomen. There is a short segment of circumferential masslike wall thickening of the small bowel in this location. This has become larger in size and more thickened when compared to the prior study. Concern is for a mucosal-based neoplasm. Specifically, concern is for small bowel adenocarcinoma or less likely lymphoma. This apical core type lesion measures 4.0 cm in length. Surgical consultation is recommended. Small bowel loops distal to the transition are decompressed. Lymph node assessment: No retroperitoneal or pelvic adenopathy is seen. There are a few borderline mesenteric nodes seen on image 59 in the central mesentery. A node in this location measures 11 mm in short axis. These nodes were not seen previously. Pelvic structures: Prostate gland is enlarged and impresses upon the base of the bladder. Vessels: Moderately diffuse atherosclerotic calcifications seen throughout a nonaneurysmal abdominal aorta and branches. Musculoskeletal / Body wall: Multilevel degenerative changes involve the spine. There has been prior pin fixation of the femur. IMPRESSION: 1. Moderate to high-grade small bowel obstruction with a well defined transition point within the mid abdomen. At the transition point, there is a circumferential mucosal based mass (apple core lesion) which has increased in size since the prior exam. Findings are consistent with malignancy until proven otherwise. Surgical consultation is recommended. 2. Mildly enlarged central mesentery lymph nodes which are new from the prior. Metastatic disease must be considered. 3. Benign-appearing low-attenuation liver lesions without change. 4. Prostatic enlargement impressing upon the base of the bladder. 5. Moderately diffuse atherosclerosis. ED Course/Re-evaluation ED Course Patient is an 82-year-old male here with complaints of abdominal discomfort, nausea, abdominal pain. Patient reports having prior episodes of bowel obstructions which were surgically reduced. Last bowel movement was 2 days ago. Patient reports passing liquid stools yesterday and is currently not passing flatus. He was seen last in June for similar complaints requiring surgical intervention. CT imaging was concerning for high-grade small bowel obstruction likely secondary to an apple core lesion. Labs were remarkable for a mild leukocytosis of 14,000. I discussed the patient with who accepted the patient to his service. Patient was stable at time of admission. Decision to Disposition Date: Dec 04, 2017 Decision to Disposition Time: 10:36 Depart Departure Latest Vital Signs Vital Signs Date Time Temp Pulse Resp B/P (MAP) Pulse Ox O2 Delivery O2 Flow Rate FiO2 12/04/17 10:09 85 95 12/04/17 10:00 153/70 (97) 12/04/17 08:59 97.6 18 Room Air Impression: Primary Impression: Small bowel obstruction Condition: Condition Unchanged Disposition: Admitted from ER REANNA BLOOM DO Dec 04, 2017 09:01
[2017-12-04] MEDS ORDERED: NS(*) 0.9% 1000 ML BAG 1,000 ML IV ONE (09:06)
[2017-12-04] MEDS ORDERED: ONDANSETRON 4 MG/2 ML VIAL IVP ONE (09:10)
[2017-12-04 09:24] LABS: PLATELET COUNT, AUTOMATED 167 K/uL (150-450)
[2017-12-04 09:29] LABS: INR 0.99
[2017-12-04] MEDS ORDERED: IOPAMIDOL 76% 75 ML INFUS BTL 75 ML ONE (09:45)
[2017-12-04] MEDS ORDERED: NS 0.9% 25 ML BAG 25 ML ONE (09:45)
--- NOTE | 2017-12-04 10:30 | RADIOLOGY IMAGING REPORT ---
FACILITY: [facility] [place] PATIENT NAME: Rakesh Iniguez : 1935 MR: [id number] V: [id number] EXAM DATE: ORDERING PHYSICIAN: REANNA BLOOM TECHNOLOGIST: Location: [facility] Patient: Rakesh Iniguez : 1935 Visit/Account:[id number] Date of Sevice: 12/04/2017 Computed tomograpy abdomen and pelvis with IV contrast Indication: Abdominal pain. Comparison: 06/24/2017. Technique: Transaxial computed tomography images were obtained through the abdomen and pelvis follo wing the injection of nonionic iodinated intravenous contrast. Reformatted coronal and sagittal image s were also obtained. One of the following dose optimization techniques was utilized in the performance of this exam: Autom ated exposure control; adjustment of the mA and/or kV according to the patient's size; or use of an i terative reconstruction technique. Specific details can be referenced in the facility's radiology C T exam operational policy. Contrast: 75 ml of Isovue-370 IV contrast. Findings: Lower lung goins: Dependent atelectasis is present within both lung bases. There is a tiny hiatal he rnia. Liver: There are several small low-attenuation lesions present within the liver. These are unchanged when compared to the prior study. Benign etiologies would be favored. No intrahepatic biliary dilatat ion. Biliary: Gallbladder appears unremarkable as well as the intra and extra hepatic biliary system. Pancreas: Normal appearance. Spleen: Normal appearance. Adrenal glands: Mild thickening of the adrenal glands without focal nodule. No interval change. Kidneys / retroperitoneum: No stones or hydronephrosis. Focal areas of renal cortical scarring are se en bilaterally. There are suspected left parapelvic cysts. Bowel / peritoneum / mesenteries: There are numerous sigmoid and descending colon diverticula identif ied. No wall thickening or pericolonic inflammation is seen. There is no evidence for acute appendici tis. There are multiple mildly to moderately dilated small bowel loops identified. There is a clear t ransition point identified within the anterior mid abdomen. There is a short segment of circumferenti al masslike wall thickening of the small bowel in this location. This has become larger in size and m ore thickened when compared to the prior study. Concern is for a mucosal-based neoplasm. 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 This apical core type lesion lilian sures 4.0 cm in length. Surgical consultation is recommended. Small bowel loops distal to the transit ion are decompressed. Lymph node assessment: No retroperitoneal or pelvic adenopathy is seen. There are a few borderline me senteric nodes seen on image 59 in the central mesentery. A node in this location measures 11 mm in s hort axis. These nodes were not seen previously. Pelvic structures: Prostate gland is enlarged and impresses upon the base of the bladder. Vessels: Moderately diffuse atherosclerotic calcifications seen throughout a nonaneurysmal abdominal aorta and branches. Musculoskeletal / Body wall: Multilevel degenerative changes involve the spine. There has been prior pin fixation of the femur. IMPRESSION: 1. Moderate to high-grade small bowel obstruction with a well defined transition point within the mid abdomen. At the transition point, there is a circumferential mucosal based mass (apple core lesion) which has increased in size since the prior exam. Findings are consistent with malignancy until prove n otherwise. Surgical consultation is recommended. 2. Mildly enlarged central mesentery lymph nodes which are new from the prior. Metastatic disease mus t be considered. 3. Benign-appearing low-attenuation liver lesions without change. 4. Prostatic enlargement impressing upon the base of the bladder. 5. Moderately diffuse atherosclerosis. Report Dictated By: Vishal Jones at 12/04/2017 10:08 AM Report E-Signed By: Vishal Jones at 12/04/2017 10:26 AM WSN:[id number]
[2017-12-04] MEDS ORDERED: FAMOTIDINE(*) 20MG/50ML PREMIX 50 ML IVPB ONE (11:05)
[2017-12-04] MEDS ORDERED: cefOXitin/DEX(*) 2GM/50ML PREM 50 ML IVPB ONE (11:10)
[2017-12-04] MEDS ORDERED: NORMOSOL R SOLN(*) 1000 ML BAG 1,000 ML IV ONE (11:15)
--- NOTE | 2017-12-04 11:16 | General Surgery 1 H&P ---
History of Present Illness Chief Complaint abdominal pain and nausea History of Present Illness 82 yo male with a history of htn who presents with mild mid abdominal pain and nausea. some distention and some diarrhea. pt had similar episode in June and responded to conservative management. pt had laparoscopy with lysis of adhesions for sbo in 2016. pt also had a small bowel series in 2016 which was normal. pt seen in ed. wbc at 14 ct suggests apple core lesion in the mid small bowel with enlarged lymph nodes and sbo. History Other Past Surgeries: appendectomy, laparoscopy. orthopedic operations Home Meds Active Scripts Atorvastatin Calcium (ATORVASTATIN CALCIUM) 10 Mg Tablet, 1 TAB PO QHS, #90 TAB 4 Refills Prov:ANISA SHAH MD 11/09/17 Tamsulosin Hcl (FLOMAX) 0.4 Mg Cap.er.24h, 2 CAP PO QDAY, #180 CAP 4 Refills Prov:ANISA SHAH MD 11/09/17 Benazepril Hcl (BENAZEPRIL HCL) 20 Mg Tab, 20 MG PO QDAY, #90 TAB 4 Refills Prov:ANISA SHAH MD 11/09/17 Reported Medications Polyethylene Glycol 3350 (MIRALAX) 17 Gm Powd.pack, 17 GM PO QDAY Y for CONSTIPATION, PKT 11/09/17 Naproxen Sodium (ALEVE) 220 Mg Tablet, 220 MG PO QDAY, TAB use it only prn but try not too and certainly not once a day. he says he hardly uses it at all 10/30/15 Glucosa Bower 2KCL/Chondroitin Bower (GLUCOSAMINE & CHONDROITIN CAP) 1 Each Capsule, 1 EACH PO, CAPSULE 01/15/14 Allergies: Coded Allergies: Penicillins (Verified Allergy, Mild, 06/24/17) rofecoxib (Verified Allergy, Unknown, 06/24/17) Uncoded Allergies: MOLDS (Allergy, Mild, POS. ALLERGY TEST, 07/15/08) TREES (Allergy, Mild, ALLERGY TEST, 07/15/08) Family History: FH: arthritis FATHER, , Age:66 FH: diabetes mellitus BROTHER OR SISTER Review of Systems History of Hypertension?: Yes History of Diabetes?: No History of DVT?: No Obstructive Sleep Apnea?: No History of Liver Disease?: No History of Kidney Disease?: No Respiratory: Denies Shortness of Breath, Denies Other Cardiovascular: Denies Chest Pain, Denies Other Exam Vital Signs Date Time Temp Pulse Resp B/P (MAP) Pulse Ox O2 Delivery O2 Flow Rate FiO2 12/04/17 10:09 85 95 12/04/17 10:00 153/70 (97) 12/04/17 08:59 97.6 18 Room Air General Appearance: Alert, Awake, No Acute Distress Cardiovascular: Regular Rate and Rhythm Respiratory: Clear to Auscultation GI: Abd Soft and Non-Tender (no masses, mild distention) Medical Decision Making Data Points Result Diagram: 12/04/17 0911 12/04/17 0911 Assessment and Plan Problems: (1) Small bowel obstruction Status: Acute Assessment & Plan: 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 will take to or for exploratory laparotomy and small bowel resection. discussed the ct findings. possibility of cancer. discussed the compactions and recovery. Copies to: ANISA SHAH MD; STARR VALENCIA MD Venous Thromboembolism Antithrombotics Is Pt On Any Antithrombotics?: No STARR VALENCIA MD Dec 04, 2017 11:16
--- NOTE | 2017-12-04 11:17 | Post Operative Progress Note ---
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
[2017-12-04] MEDS ORDERED: LEVOFLOXACIN/D5W*500 MG/100 ML 100 ML IVPB ONE (11:20)
[2017-12-04] MEDS ORDERED: metroNIDAZOLE* 500MG/100ML BAG 100 ML IVPB ONE (11:20)
[2017-12-04] MEDS ORDERED: ROPIVACAINE 0.2% 20 ML VIAL ONE (11:38)
[2017-12-04] MEDS ORDERED: fentaNYL CITR 100 MCG/2 ML AMP ONE ×3 (11:45→13:32)
[2017-12-04] MEDS ORDERED: DEXAMETHASONE SOD PHOS 10MG/ML ONE (11:45)
[2017-12-04] MEDS ORDERED: PROPOFOL EMUL(*) 10MG/ML 20 ML 20 ML ONE (11:45)
[2017-12-04] MEDS ORDERED: ONDANSETRON 4 MG/2 ML VIAL ONE (11:45)
[2017-12-04] MEDS ORDERED: LIDOCAINE MPF 1% 5 ML VIAL ONE (11:45)
[2017-12-04] MEDS ORDERED: ROCURONIUM BROM 10 MG/ML 10 ML ONE (11:46)
[2017-12-04] MEDS ORDERED: SUCCINYLCHOL CHL 200MG/10ML VL ONE (11:46)
[2017-12-04] MEDS ORDERED: ONDANSETRON 4 MG/2 ML VIAL IVP PRN (12:05)
[2017-12-04] MEDS ORDERED: ARTIFICIAL TEARS OINT 7 GM 7 GM TUBE ONE (12:08)
[2017-12-04] MEDS ORDERED: SUGAMMADEX SOD 500 MG/5 ML SDV ONE (12:56)
[2017-12-04] MEDS: MORPHINE 1 MG/ML 30 ML PCA IV PRN (16:32)
[2017-12-04] MEDS: ACETAMINOPHEN(*)1000 MG/100 ML 100 ML IVPB SCH (16:32)
--- NOTE | 2017-12-04 20:05 | Medical Nutrition Therapy ---
Nutrition Anthropometrics Height (Inches): 64.00 Height (Calculated Centimeters: 162.743024 Weight (Pounds): 168 Weight (Calculated Kilograms): 76.402 BMI: 28 Jhon Nutrition Score: Probably Inadequate Jhon Nutrition Risk Score: 18 Dietary Referral Nutrition Risk Factors: Nutrition Risk Comment: Physical Findings Physical Appearance: Overweight BMI 25-29 Skin Appearance Skin Appearance: Edema Edema Location Modifier: Edema Location: Type of Edema: Degree of Edema: Gastrointestinal Symptoms GI Symtoms: Diarrhea, Change in Bowel Pattern Tube Present: Bowel Sounds: Recent Bowel Pattern: Constipated Stool Characteristics: Liquid Nutrition/Food History Decreased Appetite, N/V Nutritional Diagnosis Nutritional Risk Acuity 1: GI Obstruction Nutritional Risk Acuity 3: Nausea Past Medical History: HTN, Hypercholesterolemia, Occasional Diarrhea Nutritional Acuity: 1-High Nutrition Diagnosis: Altered GI Function Nutrition Etiology: Physiological Causes Nutrition Problem/Etiology/Sym: Altered Gastrointestinal (GI) Function related to alteration in gastrointestinal tract function secondary to SBO AEB positive SBO diagnosis with CT of the abdomen and abdominal pain, nausea prior to admit. Energy Requirement: 1900 ([place]-St Jeor: Actual BW X 1.4) Protein Requirement: 76 (Actual BW Kg X 1.0) Fluid Requirement: 1900 Diet Type: NPO (Nothing by Mouth) Nutrition Intervention: Change diet, Incr diet as tolerated Nutrition Monitoring & Eval Nutrition Goals: Eat 50-100% Meal RD Patient Assessment Time: [address] Assessment Type: RD Assessment Patient Nutrition Acuity: 1-High Follow Up Date: Dec 05, 2017 Nutritional Comment: 12/03 Pt admitted for small bowel obstruction d/t tumor with surgery. Glu 130. High marlo oseas, marlo protein. Overwt with BMI of 28.9. Pt NPO d/t SBO and recent surgery. Follow clinical progression, labs, etc. -JAKE ABEBE Dec 04, 2017 20:05
[2017-12-04] MEDS: NORMOSOL R SOLN(*) 1000 ML BAG 1,000 ML IV PRN (20:34)
[2017-12-05] MEDS: ACETAMINOPHEN(*)1000 MG/100 ML 100 ML IVPB SCH ×3 (00:30→16:19)
[2017-12-05 00:33] VITALS: BP 127/64
[2017-12-05 04:50] VITALS: BP 107/53
[2017-12-05] MEDS: NORMOSOL R SOLN(*) 1000 ML BAG 1,000 ML IV PRN ×3 (04:51→21:42)
[2017-12-05 05:25] LABS: PLATELET COUNT, AUTOMATED 101 K/uL (150-450)
[2017-12-05 07:05] VITALS: BP 108/62
[2017-12-05] MEDS: ENOXAPARIN 40 MG/0.4ML SYR SC SCH (08:45)
[2017-12-05] MEDS ORDERED: PANTOPRAZOLE SOD 40 MG IV VIAL IVP SCH (09:00)
--- NOTE | 2017-12-05 10:06 | General Surgery Progress Note ---
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 will take to or for exploratory laparotomy and small bowel resection. discussed the ct findings. possibility of cancer. discussed the compactions and recovery. 12/05/17 doing well, will try removing upton and try clear liquids. Exam Sepsis Risk: No Definite Risk STARR VALENCIA MD Dec 05, 2017 10:06
[2017-12-05] MEDS: TAMSULOSIN HCL 0.4 MG CAP PO SCH (10:11)
[2017-12-05 10:58] VITALS: BP 104/52
[2017-12-05] MEDS: MORPHINE 1 MG/ML 30 ML PCA IV PRN (10:59)
--- NOTE | 2017-12-05 12:03 | Medical Nutrition Therapy ---
Nutrition Anthropometrics Height (Inches): 64.00 Height (Calculated Centimeters: 162.580254 Weight (Pounds): 168 Weight (Calculated Kilograms): 76.402 BMI: 28 Jhon Nutrition Score: Probably Inadequate Jhon Nutrition Risk Score: 18 Dietary Referral Nutrition Risk Factors: Nutrition Risk Comment: Physical Findings Physical Appearance: Overweight BMI 25-29 Skin Appearance Skin Appearance: Edema Edema Location Modifier: Edema Location: Type of Edema: Degree of Edema: Gastrointestinal Symptoms GI Symtoms: Change in Bowel Pattern Tube Present: Bowel Sounds: Recent Bowel Pattern: Constipated Stool Characteristics: Liquid Nutrition/Food History No Significant Nutr. HX, N/V Nutritional Diagnosis Nutritional Risk Acuity 1: GI Obstruction Nutritional Risk Acuity 3: Nausea Past Medical History: HTN, Hypercholesterolemia, Occasional Diarrhea Nutritional Acuity: 1-High Nutrition Diagnosis: Altered GI Function Nutrition Etiology: Physiological Causes Nutrition Problem/Etiology/Sym: Altered Gastrointestinal (GI) Function related to alteration in gastrointestinal tract function secondary to SBO AEB positive SBO diagnosis with CT of the abdomen and abdominal pain, nausea prior to admit. Energy Requirement: 1900 ([place]-St Jeor: Actual BW X 1.4) Protein Requirement: 76 (Actual BW Kg X 1.0) Fluid Requirement: 1900 Diet Type: Clear Liquids Nutrition Intervention: Change diet, Incr diet as tolerated Nutrition Monitoring & Eval RD Patient Assessment Time: [address] Assessment Type: RD Re-Assessment Patient Nutrition Acuity: 1-High Follow Up Date: Dec 07, 2017 Nutritional Comment: 6/2 Pt admitted for small bowel obstruction d/t tumor with surgery. Glu 130. High marlo oseas, marlo protein. Overwt with BMI of 28.9. Pt NPO d/t SBO and recent surgery. Follow clinical progression, labs, etc. -DRT 12/05 Diet progression to clear liquids. Follow intake/tolerance of PO diet. -JAKE ABEBE Dec 05, 2017 12:03
[2017-12-05 15:19] VITALS: BP 102/52
[2017-12-05 20:10] VITALS: BP 109/60
[2017-12-06] VITALS (8 sets, daily range): BP systolic 107–125; BP diastolic 49–84
[2017-12-06] MEDS: ACETAMINOPHEN(*)1000 MG/100 ML 100 ML IVPB SCH (00:48)
--- NOTE | 2017-12-06 03:57 | OPERATIVE REPORT 1 ---
EVENT DATE: December 04, 2017 SURGEON: Reed Bowers MD ANESTHESIOLOGIST: Rafael Ash MD ANESTHESIA: General. 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 PROCEDURE Exploratory laparotomy and enterectomy with primary anastomosis. DESCRIPTION OF PROCEDURE Patient was placed in the supine position, given general anesthetic. Saravia catheter, NG, sequential compression were placed. The abdomen was then prepped and draped in sterile fashion. We made an incision in the midline right about the level of the umbilicus, carried down through skin and subcutaneous tissue, entered the peritoneal cavity. There was some clear ascitic fluid. This was suctioned out. We then went to the right lower quadrant, identified the decompressed small bowel and ran it back, and we identified the mass with a distinct transition point. This was brought up into the wound. We then palpated the mesentery. It was fatty. I could not palpate any enlarged lymph nodes in the mesentery despite repeated attempts at palpation. We then went 5 cm proximal and distal to the bowel and did a wedge resection, resecting the mesentery down to the root of the mesentery. This was done with a harmonic scalpel. The small bowel was then transected and removed from the field. We then placed a 75 mm stapler in and did a functional end-to-end anastomosis along the anterior mesenteric border. The opening in the small bowel was then closed with a linear 60 stapler. We reinforced the angle of the anastomosis with interrupted 3-0 silk in a seromuscular fashion. The mesenteric defect was closed with interrupted 2-0 Chromic. At this point, the procedure was terminated. The peritoneum as closed with #0-Chromic. Fascia was closed with looped #0-PDS. We injected 40 mL of 0.2% ropivacaine in the muscle and subcutaneous tissue. Skin was closed with interrupted 4-0 Maxon. Steri-Strips and Airstrip were placed. Patient tolerated procedure well, no apparent complications. [facility]ARE SYSTEMHosea
[2017-12-06] MEDS: NORMOSOL R SOLN(*) 1000 ML BAG 1,000 ML IV PRN (06:05)
--- NOTE | 2017-12-06 08:24 | General Surgery Progress Note ---
Subjective Progress Notes Subjective no complaints, tolerating clears. moving well. has flatus. 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 will take to or for exploratory laparotomy and small bowel resection. discussed the ct findings. possibility of cancer. discussed the compactions and recovery. 12/05/17 doing well, will try removing upton and try clear liquids. 12/06/17 doing well, will try increasing diet Exam Sepsis Risk: No Definite Risk STARR VALENCIA MD Dec 06, 2017 08:23
[2017-12-06] MEDS: TAMSULOSIN HCL 0.4 MG CAP PO SCH (09:28)
[2017-12-06] MEDS: PANTOPRAZOLE SOD 40 MG TABEC PO SCH (09:28)
[2017-12-06] MEDS: ENOXAPARIN 40 MG/0.4ML SYR SC SCH (09:29)
[2017-12-06] MEDS: APAP/HYDROCODONE 325/5 TAB PO PRN ×2 (09:32→17:49)
[2017-12-07 05:01] VITALS: BP 121/55
--- NOTE | 2017-12-07 07:01 | General Surgery Progress Note ---
Subjective Progress Notes Subjective slept well, feels good wants to go home, flatus no bm. 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 will take to or for exploratory laparotomy and small bowel resection. discussed the ct findings. possibility of cancer. discussed the compactions and recovery. 12/05/17 doing well, will try removing upton and try clear liquids. 12/06/17 doing well, will try increasing diet 12/07/17 doing well, hopefully home later today. Exam Sepsis Risk: No Definite Risk STARR VALENCIA MD Dec 07, 2017 07:01
[2017-12-07 08:10] VITALS: BP 134/58
[2017-12-07] MEDS: ENOXAPARIN 40 MG/0.4ML SYR SC SCH (08:37)
[2017-12-07] MEDS: PANTOPRAZOLE SOD 40 MG TABEC PO SCH (08:37)
[2017-12-07] MEDS: TAMSULOSIN HCL 0.4 MG CAP PO SCH (08:37)
[2017-12-07 10:50] VITALS: BP 131/53
[2017-12-07 15:11] VITALS: BP 126/63
--- NOTE | 2017-12-07 16:35 | Medical Nutrition Therapy ---
Nutrition Anthropometrics Height (Inches): 64.00 Height (Calculated Centimeters: 162.455708 Weight (Pounds): 168 Weight (Calculated Kilograms): 76.402 BMI: 28 Jhon Nutrition Score: Adequate Jhon Nutrition Risk Score: 21 Dietary Referral Nutrition Risk Factors: Nutrition Risk Comment: Physical Findings Physical Appearance: Overweight BMI 25-29 Skin Appearance Skin Appearance: Edema Edema Location Modifier: Edema Location: Type of Edema: Degree of Edema: Gastrointestinal Symptoms GI Symtoms: Appetite Changes, Change in Bowel Pattern Tube Present: Bowel Sounds: Recent Bowel Pattern: Constipated Stool Characteristics: Liquid Nutritional Diagnosis Nutritional Risk Acuity 1: GI Obstruction Nutritional Risk Acuity 3: Nausea Past Medical History: HTN, Hypercholesterolemia, Occasional Diarrhea Nutritional Acuity: 1-High Nutrition Diagnosis: Altered GI Function Nutrition Etiology: Physiological Causes Nutrition Problem/Etiology/Sym: Altered Gastrointestinal (GI) Function related to alteration in gastrointestinal tract function secondary to SBO AEB positive SBO diagnosis with CT of the abdomen and abdominal pain, nausea prior to admit. Energy Requirement: 1900 ([place]-St Jeor: Actual BW X 1.4) Protein Requirement: 76 (Actual BW Kg X 1.0) Fluid Requirement: 1900 Diet Type: Clear Liquids Nutrition Intervention: Change diet, Incr diet as tolerated Nutrition Monitoring & Eval RD Patient Assessment Time: [address] Assessment Type: RD Re-Assessment Patient Nutrition Acuity: 1-High Follow Up Date: Dec 10, 2017 Nutritional Comment: 6/2 Pt admitted for small bowel obstruction d/t tumor with surgery. Glu 130. High marlo oseas, marlo protein. Overwt with BMI of 28.9. Pt NPO d/t SBO and recent surgery. Follow clinical progression, labs, etc. -DRT 6/ Diet progression to clear liquids. Follow intake/tolerance of PO diet. -DRT 6/ Surgery went well. Pt diet advancement to regular diet with 50% to 100% oral intake. No new labs at this time. Continue to monitor pt progress and encourage intake. AIYANA GRANADOS Dec 07, 2017 14:35
[2017-12-07 19:55] VITALS: BP 129/61
[2017-12-07 22:57] VITALS: BP 151/72
[2017-12-08 06:13] VITALS: BP 146/72
--- NOTE | 2017-12-08 07:54 | General Surgery Progress Note ---
Subjective Progress Notes Subjective no complaints, no nausea some incisional pain. 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 will take to or for exploratory laparotomy and small bowel resection. discussed the ct findings. possibility of cancer. discussed the compactions and recovery. 12/05/17 doing well, will try removing upton and try clear liquids. 12/06/17 doing well, will try increasing diet 12/07/17 doing well, hopefully home later today. 12/08/17 home today Exam Sepsis Risk: No Definite Risk STARR VALENCIA MD Dec 08, 2017 07:53
[2017-12-08] MEDS ORDERED: HYDR-4309 PO (07:55)
--- NOTE | 2017-12-08 07:56 | Short(Outpt) Discharge Summary ---
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 will take to or for exploratory laparotomy and small bowel resection. discussed the ct findings. possibility of cancer. discussed the compactions and recovery. 12/05/17 doing well, will try removing upton and try clear liquids. 12/06/17 doing well, will try increasing diet 12/07/17 doing well, hopefully home later today. 12/08/17 home today Departure Discharge to: Home Discharge Instructions Home Meds Active Scripts Hydrocodone Bit/Acetaminophen (NORCO 5-325 TABLET) 1 Each Tablet, 1 EACH PO Q4H Y for PAIN, #30 TAB Prov:STARR VALENCIA MD 12/08/17 Atorvastatin Calcium (ATORVASTATIN CALCIUM) 10 Mg Tablet, 1 TAB PO QHS, #90 TAB 4 Refills Prov:ANISA SHAH MD 11/09/17 Tamsulosin Hcl (FLOMAX) 0.4 Mg Cap.er.24h, 2 CAP PO QDAY, #180 CAP 4 Refills Prov:ANISA SHAH MD 11/09/17 Benazepril Hcl (BENAZEPRIL HCL) 20 Mg Tab, 20 MG PO QDAY, #90 TAB 4 Refills Prov:ANISA SHAH MD 11/09/17 Reported Medications Polyethylene Glycol 3350 (MIRALAX) 17 Gm Powd.pack, 17 GM PO QDAY Y for CONSTIPATION, PKT 11/09/17 Naproxen Sodium (ALEVE) 220 Mg Tablet, 220 MG PO QDAY, TAB use it only prn but try not too and certainly not once a day. he says he hardly uses it at all 10/30/15 Glucosa Bower 2KCL/Chondroitin Bower (GLUCOSAMINE & CHONDROITIN CAP) 1 Each Capsule, 1 EACH PO, CAPSULE 01/15/14 Diet: Regular Activity: No Heavy Lifting Special Instructions: may shower to see me in one week, call [phone] for apt STARR VALENCIA MD Dec 08, 2017 07:56
[2017-12-08] MEDS ORDERED: MAGNESIUM HYDROXIDE* 30ML UDCP PO PRN (08:00)
[2017-12-08] MEDS: PANTOPRAZOLE SOD 40 MG TABEC PO SCH (08:47)
[2017-12-08] MEDS: TAMSULOSIN HCL 0.4 MG CAP PO SCH (08:48)
[2017-12-08] MEDS: ENOXAPARIN 40 MG/0.4ML SYR SC SCH (08:48)
== END 2017-12-08 09:45 | disposition home or self-care (01) | DRG 331 ==
LOC: ER 09:06 → OR 11:06 → MED 14:30
PROVIDERS: ADMIT Surgery; ATTEND Surgery
PROC: 0DB80ZZ Excision of Small Intestine, Open Approach (ICD-10-PCS; principal; 2017-12-04 12:03)
DX: D49.0 Neoplasm of unspecified behavior of digestive system (principal); I10 Essential (primary) hypertension; Z88.0 Allergy status to penicillin; Z88.8 Allergy status to other drugs, medicaments and biological substances; Z87.891 Personal history of nicotine dependence
CPT/HCPCS: 36415; 74177; 81001; 82040; 82247; 82310; 82374; 82435; 82565; 82947; 83605; 83690; 84075; 84132; 84155; 84295; 84450; 84460; 84520; 85025; 85610; 85730; 88307; 88342; 88344; 99284; C9113; J0131; J0330; J1100; J1650; J1956; J2001; J2270; J2405; J2704; J2795; J3010; J3490; J7030; Q9967

== ENCOUNTER 2018-02-14 10:01 | Outpatient (RCR) | payer MEDICARE, BC ==
[2017-12-04 19:55] VITALS: Ht 160 cm; Wt 75.6 kg
[2018-01-04 08:57] VITALS: BP 137/70
[2018-01-04 10:31] LABS: PLATELET COUNT, AUTOMATED 125 K/uL (150-450)
--- NOTE | 2018-01-05 04:12 | ONCOLOGY HISTORY AND PHYSICAL ---
DATE OF VISIT: January 04, 2018 REFERRING PROVIDER Reed Bowers MD REASON FOR CONSULTATION Small bowel MALT lymphoma. CHIEF COMPLAINT The patient feels well today. HISTORY OF PRESENT ILLNESS Mr. Iniguez is a very pleasant 82-year-old gentleman with a history of hypertension , hyperlipidemia, BPH, and a reported history of partial small bowel obstruction for which he underwent lysis of adhesions in November of 2015, and he had recurrent problem in June of 2017. He was managed conservatively in June of 2017. Unfortunately, the patient again presented recently with signs and symptoms consistent with small bowel obstruction. He had a CT scan of the abdomen and pelvis performed on December 04. This revealed a moderate to high -grade small bowel obstruction with a well-defined transition point in the mid abdomen. At the transition point, there was a circumferential mucosal-based mass, which had increased in size since the prior exam. The findings were consistent with malignancy, and surgical consultation was recommended. There were also some mildly enlarged central mesenteric lymph nodes that were new from prior. He had some benign-appearing low attenuation lesions in the liver, and in his prostate was enlarged. The patient was taken to the operating room on December 04 for exploratory laparotomy with enterectomy and reanastomosis. 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 The patient's recovery from surgery was uneventful, and he returned home. At this point, he reports feeling quite good. He reports no fevers, chills or sweats. He has had no unexpected weight loss, but he did lose some weight due to his presentation recently with small bowel obstruction. He reports no problems with recurrent infection. He has had no abnormal bruising or bleeding. He denies shortness of breath, chest pain , and productive cough. He has noticed no lumps or bumps in the neck, underarms or groin. REVIEW OF SYSTEMS Review of systems is otherwise negative, and all systems were reviewed. CURRENT MEDICATIONS 1. [place] p.r.n. 2. MiraLAX p.r.n. 3. Atorvastatin 10 mg p.o. daily. 4. Flomax 2 mg p.o. daily. 5. Benazepril 20 mg p.o. daily. 6. Aleve p.r.n. 7. Glucosamine/chondroitin. ALLERGIES PENICILLIN, ROFECOXIB. He is also reportedly allergic to molds and trees. SOCIAL HISTORY Patient is a nonsmoker and nondrinker. He is a retired teacher. He is single and lives alone. FAMILY HISTORY There are no known malignancies in his family history. VITAL SIGNS Temperature 97.0, blood pressure 137/70. Heart rate is 106, respirations 16, oxygen saturation is 94% on room air. Weight is 73.8 kg. PHYSICAL EXAMINATION GENERAL: Patient is alert and oriented x three, no apparent distress, sitting in the exam room chair. HEENT: Exam reveals anicteric sclerae. NEUROLOGIC: Grossly nonfocal, and his gait is normal. HEART: Regular rate and rhythm. ABDOMEN: Soft, nontender, nondistended. No active bowel sounds are present. SKIN: Exam reveals no concerning rash or lesion. LABORATORY DATA Laboratory studies from today reveal a white blood cell count of 7800, hemoglobin 15.8, hematocrit 45.3, platelet count 125,000. There is a slight neutrophil predominance and basophil predominance. Comprehensive metabolic panel is unremarkable with the exception of blood glucose of 149. Immunoglobulins are still pending. IMAGING Please see history of present illness. PATHOLOGY Please see history of present illness. ASSESSMENT AND PLAN Extranodal mucosa-associated lymphoid tissue lymphoma (MALT), small bowel. I had a good visit with Mr. Iniguez and his visitors today. Symptomatically, he is doing remarkably well, and his performance status is excellent. We spent time today reviewing his past medical history of recurrent small bowel obstruction, and his recent diagnosis of extranodal MALT lymphoma of the small bowel after presenting with small bowel obstruction symptoms in December. The patient has recovered quite well from his surgery. He has no B symptoms. In fact, he is generally asymptomatic at this time. We spent a good deal of time today discussing the diagnosis of extranodal MALT lymphoma, the indolent nature of this malignancy, and the lack of findings currently present to suggest that he requires any type of systemic therapy. I have recommended that he go for a CT scan of the chest to complete reasonable staging. We are awaiting additional laboratory studies today, but the patient does have a modest thrombocytopenia. Short of performing a bone marrow biopsy, I do think that this is something that can be monitored over time. He has had no abnormal bruising or bleeding. We discussed likely surveillance strategies moving forward. Although periodic imaging is not unreasonable, he would benefit from being followed here in this clinic periodically over time. Quarterly for the first year is certainly a reasonable start, and if he is doing well at the end of that year, we can extend the period of time between his visits. I have recommended that the patient consider following up with Dr. Webb, my colleague, who also comes here to [facility], and has particular interest and expertise in lymphoma. The patient agrees with this plan. I spent a total of 60 minutes of time [id number] with the patient and his loved ones today; 55 minutes of this was spent in direct counseling and coordination of care. SIXTO
--- NOTE | 2018-01-10 12:53 | RADIOLOGY IMAGING REPORT ---
FACILITY: [facility] PATIENT NAME: Rakesh Iniguez : 1935 MR: [id number] V: [id number] EXAM DATE: ORDERING PHYSICIAN: JOHN EGAN TECHNOLOGIST: Location: [facility] Patient: Rakesh Iniguez : 1935 Visit/Account:[id number] Date of Sevice: 01/10/2018 CHEST W/O CONTRAST History: Stomach surgery the previous week. No chest complaints. TECHNIQUE: Contiguous axial images were performed through the chest to the level of the adrenal gla nds. No IV contrast was administered. Coronal and sagittal reformatting was also performed. One of t he following dose optimization techniques was utilized in the performance of this exam: Automated exp osure control; adjustment of the mA and/or kV according to the patient's size; or use of an iterative reconstruction technique. Specific details can be referenced in the facility's radiology CT exam o perational policy. COMPARISON STUDIES: Comparison made to abdomen/pelvis CT performed December 04, 2017.. Comparison also made to a report from the abdomen/pelvis CT performed on 10/30/2015. I do not have access to those im ages. Lungs / Pleura: Lung parenchyma is well-aerated. There is a 2 mm micronodule in the inferior aspec t of the left upper lobe adjacent to the major fissure (image 62 series 3) and a 4 mm subsolid nodule left lower lobe (image 77 series 3). Mediastinum/nodes: negative. Heart and vessels: negative. Musculoskeletal / Body wall: negative. Upper abdomen: There is a 2 cm subcapsular cyst seen in the posterior right lobe of liver which was mentioned in 2016 and is unchanged. There are several additional subcentimeter hypodense lesions in the liver which likely also represents cysts. They were also mentioned in the 2016 report. There is suture line seen in the descending duodenum which was not present previously and probably re presents the reported interval surgery. Visualized abdominal viscera otherwise unremarkable. IMPRESSION: Two pulmonary micronodules, the largest 4 mm diameter. If patient does not have extenuating medical history or risk factors no follow-up necessary. If patient has risk factors consider follow-up chest CT in 12 months (see Fleischner Society guidelines below). Several hypodense liver lesions all likely represent cysts. Suture line seen in the duodenum. Recommendations for management of pulmonary nodules at non-screening CT (Allie Society Criteria) Nodule size less than or equal to 4 mm: Low-risk patient: No followup needed High risk patient: Followup CT at 12 months, if unchanged, no further followup. Nodule size 4-6 mm: Low-risk patient: Followup CT at 12 months, if unchanged, no further followup. High-Risk patient: Initial followup CT at 6-12 months, then at 18-24 months if no change. Nodule size 6-8mm: Low-risk patient: Initial followup CT at 6-12 months, then at 18-20 months if no change. High risk patient: Initial followup CT at 3-6 months, then at 9-12 and 24 months if no change. Nodule size greater than 8mm: Low-risk patient: Followup CT at 3, 9, and 24 months, dynamic contrast-enhanced CT, PET, and/or biop sy High-Risk patient: Same as order low-risk patient. Report Dictated By: Antoni Nicholson MD at 01/10/2018 12:34 PM Report E-Signed By: Antoni Nicholson MD at 01/10/2018 12:49 PM WSN:[id number]
[~2018-02-14] VITALS: Ht 160 cm; Wt 75.6 kg
[~2018-02-14 10:01] MED LIST changes: +BENA20TA64 PO; -BENA20TA8 PO; +HYDR-4309 PO; +MV M PO
[2018-02-14 10:25] VITALS: BP 139/63
--- NOTE | 2018-02-15 12:03 | ONCOLOGY FOLLOW UP NOTE ---
EVENT DATE: February 14, 2018 CHIEF COMPLAINT/REASON FOR VISIT Mr. Iniguez is a pleasant 82-year-old gentleman with MALT lymphoma of the small bowel here for followup. HISTORY OF PRESENT ILLNESS Mr. Iniguez returns. He has a history of hypertension, hyperlipidemia, BPH, and multiple episodes of small bowel obstruction starting in November of 2015 that presented in December of 2017 with a more significant bowel obstruction with a well- defined transition point in the mid abdomen. There was a circumferential mucosal-based mass with surrounding lymphadenopathy. He was taken to the OR, where he had enterectomy and reanastomosis. Thankfully surgery revealed a low- grade non-Hodgkin's lymphoma consistent with extranodal margins on lymphoma/ MALT. He has not received any therapy, as his symptoms have completely resolved. He did not have major symptoms with each of these small bowel obstructions starting in 2015, but did have preceding nausea for all of them. This nausea has completely resolved. He met with Dr. Singer, who recommended an active surveillance approach and consideration of Rituxan if he develops any nausea. I think this is very reasonable. We discussed consideration of doing four doses of Rituxan now, however, as he is symptom-free, I think it is reasonable to simply watch. Given the low-grade nature of this nature, it was likely present for many years prior to the initial small bowel obstruction in November of 2015. No other adenopathy. His labs look quite well other than some very mild thrombocytopenia. No concerning lumps or bumps. REVIEW OF SYSTEMS CONSTITUTIONAL: No fevers, chills, significant weight change. HEENT: No headache or visual changes. CARDIOVASCULAR: No chest pain, dyspnea on exertion or edema. RESPIRATORY: No shortness of breath, wheeze, cough. GASTROINTESTINAL: Positive nausea when he has had episodes of partial small bowel obstruction. None currently. No vomiting, diarrhea or constipation. GENITOURINARY: No dysuria or hematuria. MUSCULOSKELETAL: No weakness or joint pain. PSYCHIATRIC: No anxiety or depression. IMMUNOLOGIC: Positive problems with allergies recently, which may or may not be related to the MALT lymphoma. Agree with the sinus rinses, which have been very helpful. LYMPHATIC: No concerning lumps or bumps. Remainder of the 14-point review of systems is otherwise negative. 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 Nonsmoker. Nondrinker. Single and lives alone. FAMILY HISTORY No known cancer in the family. PHYSICAL EXAMINATION VITAL SIGNS: Blood pressure 139/63, pulse 91, respiratory rate 16, temperature 97.3 Fahrenheit, oxygen saturation 92% on room air. Weight 75.6 kg. Pain 0/10 , fatigue 0/10. GENERAL: Stable condition, resting comfortably in the chair. HEENT: Normocephalic, atraumatic. LYMPHATIC: No appreciable cervical, supraclavicular, axillary adenopathy. CARDIOVASCULAR: Regular rate and rhythm. LUNGS: Clear to auscultation bilaterally. ABDOMEN: Soft, nontender. No organomegaly, no masses, no tenderness. EXTREMITIES: No clubbing, cyanosis or edema. SKIN: No concerning findings. The remainder of the physical exam is otherwise unremarkable. IMPRESSION/PLAN Mr. Iniguez is a pleasant 82-year-old gentleman with the followin. 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 I agree with the plan for active surveillance, as he is completely symptom free. If he develops nausea or any signs of a partial small bowel obstruction again, then I would utilize Rituxan. We discussed this versus giving four doses of Rituxan now, and he agrees with the plan for active surveillance. No issues with hypogammaglobulinemia. I answered all of his questions today. Billing: Return visit level 4. Total time 30 minutes. Counseling time 20. We will see him every three months. [facility]ITALHosea
== END 2018-04-03 ==
LOC: ONC 10:01
PROVIDERS: ATTEND Internal Medicine Medical Oncology
DX: C88.4 Extranodal marginal zone B-cell lymphoma of mucosa-associated lymphoid tissue [MALT-lymphoma] (principal); R91.1 Solitary pulmonary nodule; I10 Essential (primary) hypertension; E78.5 Hyperlipidemia, unspecified
CPT/HCPCS: 36415; 71250; 82784; 83615; 85025; G0463; 82040; 82247; 82310; 82374; 82435; 82565; 82947; 84075; 84132; 84155; 84295; 84450; 84460; 84520; 99202; 99212

== ENCOUNTER → 2018-04-12 | Outpatient (CLI) | payer MEDICARE, BC ==
[2017-12-04 19:55] VITALS: BMI 28.8
[~2018-04-12] MED LIST changes: +FEXO-67 PO; +FLUT16SP19 NS
[2018-04-12 08:46] LABS: PLATELET COUNT, AUTOMATED 153 K/uL (150-450)
[2018-04-12 09:13] LABS: LDL CHOLESTEROL 65 mg/dl
== END ==
LOC: LAB 08:18
PROVIDERS: ATTEND Internal Medicine
DX: E78.5 Hyperlipidemia, unspecified (principal); J30.2 Other seasonal allergic rhinitis; I10 Essential (primary) hypertension
CPT/HCPCS: 36415; 81001; 82040; 82247; 82310; 82374; 82435; 82465; 82565; 82947; 83036; 83718; 84075; 84132; 84153; 84155; 84295; 84443; 84450; 84460; 84478; 84520; 85025

== ENCOUNTER 2018-05-09 06:48 | Outpatient (RCR) | payer MEDICARE, BC ==
[2017-12-04 19:55] VITALS: BMI 28.8
[~2018-05-09 06:48] MED LIST changes: -HYDR-4309 PO; +HYDR-653 PO
[2018-05-09 11:23] VITALS: BP 134/64
[2018-05-09 11:31] LABS: PLATELET COUNT, AUTOMATED 167 K/uL (150-450)
--- NOTE | 2018-05-10 04:56 | ONCOLOGY FOLLOW UP NOTE ---
EVENT DATE: May 09, 2018 CHIEF COMPLAINT "I think I'm doing okay." HISTORY OF PRESENT ILLNESS Patient is an 83-year-old male who was seen today in three-month followup for MALT lymphoma of the small bowel. He is generally doing well and has had no issues with nausea or small bowel obstruction. He does have constipation and uses MiraLAX for this, although occasionally "forgets." Overall, he is managing this without issue. He does have urinary frequency. 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 He denies any other new complaints. ONCOLOGY HISTORY Patient is an 83-year-old male who presented in November 2015 with several episodes of small bowel obstruction. In December 2017, he had a more significant bowel obstruction. Surgery for enterectomy and reanastomosis revealed a low-grade non-Hodgkin lymphoma consistent with extranodal margins on lymphoma/MALT. He has not received any therapy since then. MEDICAL HISTORY 1. MALT lymphoma of the small bowel, status post small bowel obstruction. 2. Hyperlipidemia. 3. Hypertension. 4. Osteoarthritis. 5. BPH. 6. Allergic rhinitis. FAMILY HISTORY A nephew had an unknown cancer, but no other malignancy or blood disorders in the family. SOCIAL HISTORY Patient is single. He has no children. 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 He does not smoke or drink alcohol. REVIEW OF SYSTEMS A 12-point review of systems is performed and is negative except as stated above. PHYSICAL EXAMINATION VITAL SIGNS: Weight 76.8 kg, BP 134/64, pulse 100, respirations 16, temperature 98.5, O2 saturation 92%. GENERAL: Patient is a well-developed, well-nourished male in no acute distress. HEAD: Normocephalic, atraumatic. EYES: No scleral icterus. MOUTH: Moist mucous membranes without lesions. NECK: Supple. No adenopathy. CARDIOVASCULAR: Heart rate regular, with mild tachycardia, 100 per minute, without murmur, S3 or S4. LUNGS: Clear bilaterally. ABDOMEN: Soft, obese, nontender, with active bowel sounds. No organomegaly. EXTREMITIES: No edema. NEURO: Nonfocal. LABORATORY CBC today reveals WBC of 7.3, hemoglobin 15.3, hematocrit 44.2, platelets 167,000. CMP was within normal limits. LDH was 361. IMPRESSION AND PLAN The patient is an 83-year-old male with small bowel MALT lymphoma. He has been symptom free and has not had any issues with partial small bowel obstruction. We reviewed that if he were to develop nausea or abdominal pain, he should be seen emergently. We also reviewed the plan for Rituxan weekly for four doses, but at this time he will continue with active surveillance. He has had no issues with hypogammaglobulinemia. He will be seen again in three months for continued care. CBC, CMP, and LDH will be drawn at that time. MTDD
== END 2018-06-01 11:51 | disposition home or self-care (01) ==
LOC: ONC 06:48
PROVIDERS: ATTEND Internal Medicine
DX: C88.4 Extranodal marginal zone B-cell lymphoma of mucosa-associated lymphoid tissue [MALT-lymphoma] (principal); K59.00 Constipation, unspecified; R35.0 Frequency of micturition
CPT/HCPCS: 36415; 82040; 82247; 82310; 82374; 82435; 82565; 82947; 83615; 84075; 84132; 84155; 84295; 84450; 84460; 84520; 85025

== ENCOUNTER → 2018-08-22 | Outpatient (CLI) | payer MEDICARE, BC ==
[2017-12-04 19:55] VITALS: BMI 28.8
== END ==
LOC: LAB 07:48
PROVIDERS: ATTEND Internal Medicine
DX: Z02.9 Encounter for administrative examinations, unspecified (principal)

== ENCOUNTER 2018-08-23 11:12 | Outpatient (RCR) | payer MEDICARE, BC ==
[2017-12-04 19:55] VITALS: Wt 81.4 kg
[2018-08-22 10:31] VITALS: BP 149/69
[2018-08-22 10:46] LABS: PLATELET COUNT, AUTOMATED 191 K/uL (150-450)
[~2018-08-23 11:12] MED LIST changes: -DIPH0.5D12 IM; +DIPH0.5S2 IM
[2018-08-23 11:13] VITALS: BP 139/70
--- NOTE | 2018-08-23 14:28 | [facility] ONCOLOGY NOTE ---
EVENT DATE: August 23, 2018 CHIEF COMPLAINT Mr. Iniguez is a very pleasant, 83-year old gentleman with MALT lymphoma of the small bowel here for followup. HISTORY OF PRESENT ILLNESS Mr. Iniguez returns. He had multiple episodes of small bowel obstruction starting in November 2015 and then presented in December 2017 with a more significant obstruction and a well-defined transition point in the small bowel. There was a circumferential mucosal base mass with surrounding lymphadenopathy and he was taken to the OR for enterectomy and reanastomosis. Thankfully, surgery revealed only a low-grade non-Hodgkin's lymphoma consistent with extranodal marginal zone lymphoma. He has not received any therapy including Rituxan, despite discussion for this, and has elected for active surveillance. Since December 2017, he has no recurrence of symptoms consistent with small bowel obstruction and this is very reassuring. I anticipate that his prior obstructions are related to this lesion as opposed to adhesions. No other adenopathy on exam. His labs look quite well and continue to improve. No new concerning lumps or bumps. REVIEW OF SYSTEMS CONSTITUTIONAL: No fevers, chills, significant weight change. HEENT: No headache or visual changes. CARDIOVASCULAR: No chest pain, dyspnea on exertion or edema. RESPIRATORY: No shortness of breath, wheeze, cough. GASTROINTESTINAL: Positive nausea when he has had episodes of partial small bowel obstruction. None currently. No vomiting, diarrhea or constipation. GENITOURINARY: No dysuria or hematuria. MUSCULOSKELETAL: No weakness or joint pain. PSYCHIATRIC: No anxiety or depression. IMMUNOLOGIC: Positive problems with allergies recently, which may or may not be related to the MALT lymphoma. Agree with the sinus rinses, which have been very helpful. LYMPHATIC: No concerning lumps or bumps. Remainder of the 14-point review of systems is otherwise negative. 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 Nonsmoker. Nondrinker. Single and lives alone. FAMILY HISTORY No known cancer in the family. PHYSICAL EXAMINATION VITAL SIGNS: Blood pressure 139/70, pulse 85, respiratory rate 16, temperature 96.6 Fahrenheit, oxygen saturation 93% on room air. Weight 81.4 kg. Pain 0/10, fatigue 0/10. GENERAL: Stable condition, resting comfortably in the chair. No dizziness. HEENT: Normocephalic, atraumatic. CARDIOVASCULAR: Regular rate and rhythm. LUNGS: Clear. ABDOMEN: Soft, nontender. EXTREMITIES: No clubbing, cyanosis or edema. LYMPHATIC: No appreciable cervical, supraclavicular or axillary adenopathy. No masses or splenomegaly. The remainder of the physical exam is otherwise unremarkable. IMPRESSION/PLAN Mr. Iniguez is a pleasant 83-year-old gentleman with the followin. 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 Plan for active surveillance. We had discussed consideration of four doses of Rituxan but he decided on active surveillance, which is very reasonable. No issues with hypogammaglobulinemia thankfully. No evidence of relapse. 2. Dizziness with standing first thing in the morning. I advised the patient to go from a supine to seated position for a minute before rising and resting for a minute before walking first thing in the morning. He does have issues with benign prostatic hypertrophy so I would continue the Flomax and may consider cutting down on his NIRAV inhibitor. However, he has no other episodes of dizziness at other times of the day and his blood pressure is slightly elevated today. Thus, I think the best approach would be to take his time when getting out of bed first thing in the morning but I defer to Dr. Arias. I answered all of his many questions today. Billing: Return visit level 4. Total time 30 minutes. Counseling time 20. MTDD
[2018-09-06] MEDS ORDERED: FEXO-67 PO (11:08)
[2018-10-18] MEDS ORDERED: BENA20TA64 PO (10:25)
[2018-10-18] MEDS ORDERED: FLUT16SP19 NS (10:25)
[2018-10-18] MEDS ORDERED: TAMS0.4C25 PO (10:25)
[2018-10-18] MEDS ORDERED: FEXO-67 PO (10:25)
[2018-10-18] MEDS ORDERED: PNEI IJ (10:25)
[2018-10-18] MEDS ORDERED: ATOR10TA65 PO (10:25)
== END 2018-10-26 09:27 | disposition home or self-care (01) ==
LOC: ONC 11:12
PROVIDERS: ATTEND Internal Medicine
DX: C88.4 Extranodal marginal zone B-cell lymphoma of mucosa-associated lymphoid tissue [MALT-lymphoma] (principal); R42 Dizziness and giddiness; R11.0 Nausea
CPT/HCPCS: 36415; 83615; 85025; G0463; 82040; 82247; 82310; 82374; 82435; 82565; 82947; 84075; 84132; 84155; 84295; 84450; 84460; 84520; 99212

== ENCOUNTER → 2018-10-18 | Outpatient (CLI) | payer MEDICARE, BC ==
[2017-12-04 19:55] VITALS: BMI 28.8
[~2018-10-18] MED LIST changes: +PNEI IJ
[2018-10-18 07:47] LABS: PLATELET COUNT, AUTOMATED 141 K/uL (150-450)
[2018-10-18 08:05] LABS: LDL CHOLESTEROL 68 mg/dl
== END ==
LOC: LAB 07:24
PROVIDERS: ATTEND Internal Medicine
DX: Z00.00 Encounter for general adult medical examination without abnormal findings (principal); R73.9 Hyperglycemia, unspecified; E87.5 Hyperkalemia; I10 Essential (primary) hypertension
CPT/HCPCS: 36415; 81001; 82040; 82247; 82310; 82374; 82435; 82465; 82565; 82947; 83036; 83718; 84075; 84132; 84155; 84295; 84443; 84450; 84460; 84478; 84520; 85025